=== PATIENT | male | born 1960 | race Caucasian/White ===

== ENCOUNTER → 2020-09-16 16:51 | Outpatient (CLI) | payer OTHER, SELFPAY ==
--- NOTE | ~2020-09-16 | XR_ITS ---
XR knee RT min 4V DATE: 09/16/2020 17:06 INDICATION: Right knee pain. No injury. TECHNIQUE: Standing AP and PA views. Astor and crosstable lateral views. COMPARISON: None FINDINGS: There is moderately prominent periarticular spurring at the patellofemoral joint. There is prominence of the tibial spines. There is minimal periarticular spurring at the medial and lateral co mpartments and moderate loss of medial compartment joint space height. There is chondrocalcinosis. No fracture or dislocation, joint effusion, periosteal reaction or bone destruction is evident. IMPRESSION: Osteoarthritis involving predominantly the medial and patellofemoral compartments Chondrocalcinosis Reviewed, dictated and finalized at location A. ETER IMPRESSION: Osteoarthritis involving predominantly the medial and patellofemora l compartments Chondrocalcinosis
== END ==
PROVIDERS: PCP Internal Medicine; Visit Provider Internal Medicine
DX: M17.11 Unilateral primary osteoarthritis, right knee (principal); M11.261 Other chondrocalcinosis, right knee
CPT/HCPCS: 73564

== ENCOUNTER → 2021-10-27 15:32 | Outpatient (CLI) | payer OTHER, SELFPAY ==
--- NOTE | ~2021-10-27 | XR_ITS ---
EXAMINATION: XR knee LT 3V DATE: 10/27/2021 15:53 INDICATION: Left knee pain. TECHNIQUE: 3 views of left knee were obtained. COMPARISON: None. FINDINGS: Bone alignment is normal. No fracture. There is mild tricompartmental osteoarthritis. There is a small knee joint effusion. There are loose bodies in a Carrillo's cyst. IMPRESSION: 1. Mild left knee osteoarthritis. 2. Small left knee joint effusion. 3. Loose bodies in a Carrillo's cyst. Reviewed, dictated and finalized at location A. ECT MANAGEMENT ADVISOR
== END ==
PROVIDERS: PCP Family Medicine; Visit Provider Family Medicine
DX: M17.12 Unilateral primary osteoarthritis, left knee (principal); M25.462 Effusion, left knee; M23.42 Loose body in knee, left knee; M71.22 Synovial cyst of popliteal space [Baker], left knee
CPT/HCPCS: 73562

== ENCOUNTER 2021-11-14 12:40 | Outpatient (CLI) | payer OTHER, SELFPAY ==
--- NOTE | ~2021-11-14 | MR_ITS ---
EXAMINATION: MR knee LT wo con DATE: 11/14/2021 13:25 INDICATION: Left knee pain TECHNIQUE: Magnetic resonance imaging (MRI) of the left knee was performed without intravenous contra st. Sequences included coronal PD-weighted FSE, coronal PD-weighted FS FSE, sagittal T2-weighted FSE , sagittal PD-weighted FS FSE and axial PD weighted fat saturated FSE. COMPARISON: None. FINDINGS: Medial compartment: Medial extrusion of the meniscal body. Complex tear of the posterior horn of the medial meniscus with longitudinal horizontal tear plane extending to the inferior articular surface near the free edge an d with a full-thickness radial tear plane near the posterior root. Partial-thickness chondral ulcerat ion along the anterior to central weightbearing medial femoral condyle. There is prominent subarticul ar edema along the medial rim of the anterior weightbearing medial femoral condyle. The low signal of the articular cortex appears thickened at this location although this could represent secondary reac tive change related to overlying chondromalacia, the edema appears disproportionate to the degree of chondromalacia and suspect fracture with compression of the immediately subarticular bone which could have either occurred as an acute impaction injury at the time of the meniscal tear or if the menisca l tear is more chronic this could represent a stress fracture resulting from altered stress distribut ion resulting from the meniscal tear. Mild tibial chondral surface regularity with mild partial-thick ness cartilage loss along the medial side of the medial tibial plateau. Lateral compartment: Focal increased intrasubstance signal at the body of the lateral meniscus which does not unambiguousl y contact the articular surface to meet requirement for meniscal tear in this more likely represents mucoid degeneration. Mild chondral surface irregularity along the central weightbearing lateral femor al condyle. Patellofemoral compartment: Deep chondral ulceration but without degenerative subchondral changes at the central aspect of the me dial patellar facet. Additional deep chondral ulceration with underlying cortical irregularity includ ing small central subchondral osteophytes and mild subarticular increased signal extending across the caudal two thirds of the medial and lateral trochlea and intervening trochlear groove. Ligaments and tendons: Anterior and posterior cruciate ligaments are normal. There is edema along the deep and superficial m argins of the otherwise normal-appearing medial collateral ligament which could be related to either low-grade sprain or unrelated reactive edema associated with the meniscal tear or suspected medial fe moral condylar injury. The fibular collateral ligament complex is normal. Minimal tendinopathy at the osseous attachment of the patellar and distal quadriceps tendons. The visualized medial and lateral hamstring tendons as well as the iliotibial band are normal. Fluid: Moderate left knee joint effusion. There are 14 mm and 6 mm and 3 mm loose osteochondral bodies withi n a small Carrillo's cyst. No intra-articular loose osteochondral bodies identified. Osseous/other: Bone alignment is normal. Normal marrow signal aside from the previous noted marrow edema at the ante rior weightbearing medial femoral condyle degenerative subarticular signal changes at the trochlea. N o pathologic marrow replacing process. IMPRESSION: 1. Complex medial meniscal tear including full-thickness radial component near the posterior root 2. Mild tricompartmental osteoarthritis with patellofemoral predominance with moderate to high-grade chondromalacia and with moderate grade chondromalacia in the medial and lateral compartments. 3. Prominent marrow edema along the anterior weightbearing medial femoral condyle which appears dispr oportionate to the degree of overlying chondromalacia
== END 2021-11-14 12:41 | disposition home or self-care (01) ==
LOC: ANHIMG 12:44
PROVIDERS: Visit Provider Nurse Practitioner Family
DX: M25.562 Pain in left knee (principal); S83.232A Complex tear of medial meniscus, current injury, left knee, initial encounter; M17.12 Unilateral primary osteoarthritis, left knee; M94.262 Chondromalacia, left knee; M79.89 Other specified soft tissue disorders; M25.462 Effusion, left knee; M71.22 Synovial cyst of popliteal space [Baker], left knee
CPT/HCPCS: 73721

== ENCOUNTER 2022-02-02 15:26 | Outpatient (CLI) | payer OTHER, SELFPAY ==
--- NOTE | 2022-02-02 15:33 | ECG_ITS ---
Measurements Intervals [place] Rate: 80 P: 68 HI: 195 QRS: 42 QRSD: 112 T: 9 QT: 358 QTc: 413 Interpretive Statements SINUS RHYTHM MODERATE INTRAVENTRICULAR CONDUCTION DELAY [110+ ms QRS DURATION] BORDERLINE ECG NO PREVIOUS ECG AVAILABLE FOR COMPARISON Electronically Signed On 02-02-2022 17:41:40 CDT by Manuel Barba M.D.
[2022-02-02 16:15] LABS: Anion Gap 8 mmol/L (8-16); Blood Urea Nitrogen 25 mg/dL (9-20); Carbon Dioxide 26 mmol/L (22-30); Chloride 104 mmol/L (98-107); Estimated Glomerular Filt Rate > 60; Glucose 86 mg/dL (65-110); Potassium 3.6 mmol/L (3.4-5.0); Sodium 138 mmol/L (137-145)
== END 2022-02-02 15:27 | disposition home or self-care (01) ==
LOC: ANHSURGERY 15:32
PROVIDERS: Anesthesiology; PCP Family Medicine; Visit Provider Orthopaedic Surgery
DX: Z01.818 Encounter for other preprocedural examination (principal); I10 Essential (primary) hypertension; Z51.81 Encounter for therapeutic drug level monitoring; Z79.899 Other long term (current) drug therapy; I45.9 Conduction disorder, unspecified
CPT/HCPCS: 36415; 80048; 93005

== ENCOUNTER 2022-02-05 01:16 | Day surgery (SDC) | payer OTHER, SELFPAY ==
[2022-01-27 14:33] VITALS: BMI 29.9
--- NOTE | 2022-01-27 14:35 | PC.NURSE ---
Report to the Outpatient Waiting Room, entrance under the green pavilion located off [facility], at time __0830_ on date _02-05-2022_. OR Time: _1030_. - You and your visitor will be asked a series of questions to screen for COVID 19 for your protection. - A mask is required within the hospital. Preoperative COVID Testing Requirements: No COVID Test needed if: (proof is required; if not received patient will have Rapid Test prior to entry) - Patient has received COVID Vaccine at least 14 days prior to procedure date or - Patient has positive COVID test result within last 90 days of surgery date. COVID Test needed if above criteria is not met If not COVID vaccinated a COVID test must be conducted within 72 hours of surgery and patient is asked to isolate self from time of testing until procedure. You will go to the [facility] for your COVID testing. The [facility] is located at the corner of [address] [facility]. You will only be called if COVID results are positive and your surgeon may reschedule your elective surgery date. Patients may have clear liquids (water, carbonated beverages, clear teas, apple juice) until 3 hours prior to surgery with a maximum of 20 ounces. - No food from midnight until time of surgery - Infants may have breast milk until 4 hours before surgery, formula 6 hours prior to surgery. - Children will be allowed to drink immediately following surgery. If applicable, please bring a bottle or sippy cup to assist with drinking. Juice, water, soda, and popsicles are readily available. For infants on formula, please bring formula the day of surgery. Pacifiers are allowed. Take the following medications with a SIP of water the morning of surgery: No medicines day of surgery. Medications to discontinue per physician Multivitamin Date to take last [id number] Please no make-up, nail citizen of the [place], hairspray, perfume, deodorant, or body powder the day of surgery. No jewelry (including any body piercings) or valuables the day of surgery, leave them at home. Please take a shower or bath the night before, or the morning of, surgery with an antibacterial soap. Wear comfortable, loose fitting clothing. Children are encouraged to wear pajamas. - Jewelry must be removed prior to entering the operating room. Rings and piercings that are not removed may be cut off. - The hospital will not accept responsibility for valuables. - Please leave all valuables, including medications, at home the day of surgery. If you are going home after surgery, a licensed gravel truck driver must drive you home. - NO public transportation without another adult. - We recommend that an adult stay with you for 24 hours following discharge. - We also recommend that you do not drive, make important decision, drink alcoholic beverages, or take any drugs that were not prescribed by your health care provider for at least 24 hours after your discharge time. For Pediatric surgeries, we recommend two adults accompany the child home (only one inside the building at this time). One visitor will be allowed to accompany the patient into the hospital. Patients visitor will be instructed to remain with patient at all times or leave the building. We will allow the visitor to come back to the postoperative area when patient is ready. Follow any additional instructions given to you from your surgeon. Telephone instructions given to Patient and asked if any additional questions and then verbalized understanding. Patient advised to call surgeon office or pre surgery nurse liaison [phone] if any additional questions.
--- NOTE | 2022-02-04 13:37 | P.PNAN_ITS ---
Anes - Initial Pre Proc Eval Procedure: Operation Date: 02/05/22 10:30 Proposed Procedures p Left Knee Arthroscopy - Sang Wright MD Date/Time: 02/04/22 13:37 Surgeon: Sang Wright MD Pre Op Diagnosis: Lt Medial Meniscus Tear Patient Data Age: 61 Gender: M Height: 1.83 m Weight: 100 kg Allergies Allergy/AdvReac Type Severity Reaction Status Date / Time No Known Allergies Allergy Mild Verified 01/27/22 14:15 Home Medications Medication Instructions Recorded Confirmed Type losartan 100 1 tablet PO DAILY #90 tablet 12/15/21 01/27/22 Rx mg-hydrochlorothiazide 25 mg tablet tadalafil 5 mg tablet 5 mg PO DAILY #90 tablet 12/15/21 01/27/22 Rx multivitamin 1 tablet PO DAILY 01/27/22 01/27/22 History Results Review: All pre-operative results and documents have been reviewed as part of the pre-operative evaluation. [facility] Past Medical History Medical History Benign prostatic hyperplasia BPH w urinary obs/LUTS Cerumen impaction Chronic left-sided low back pain without sciatica Hypertension Insomnia, unspecified Knee pain, left Medial meniscus tear Other abnormal glucose Other obstructive and reflux uropathy Sleep disorder Tinea cruris Tobacco use disorder Weight gain Family History Family History Father Family history of malignant neoplasm Patient's father is Sibling Family history of pancreatic cancer Mother Family history of malignant neoplasm of ovary Social History Social History Smoking status: Never smoker Tobacco type: smokeless tobacco Second hand tobacco smoke exposure: No Alcohol intake: current Drinks per week: 3 Spiritual care concerns: No Anes - Eval Final PreProcedure Day of Procedure 02/04/22 13:37 Patient weight: overweight Heart: regular rate and rhythm Lungs: clear to auscultation and normal air movement Airway: Mallampati scale class II Neurological: alert and oriented Last oral intake: >/= 8 hours ASA classification: II Emergent: no Anesthetic plan: proceed Anesthesia type and monitoring: general LMA Results Review: All pre-operative results and documents have been reviewed as part of the pre-operative evaluation. Informed Consent: The patient's anesthetic plan and its attendant risks and benefits were discussed with the patient/family/POA. Questions were solicited and answers provided to the satisfaction of the patient/family/POA.
--- NOTE | 2022-02-04 16:48 | PM.IMHP ---
H&P: HPI History of Present Illness Date/Time: 02/04/22 16:48 61 year old male presents today with Lt knee pain, pt. states that the pain onset was on 10/12/2021 -8w post injury after carrying heavy furniture down the stairs and felt a pop followed by pain. Pt. had an Xray performed on 10/27/2021 and it revealed mild OA with small joint effusion, and a blanco's cyst. He states the pain is at the peak when he is going up and down the stairs. He was prescribed [place] from his PCP which did help with the pain. He denies surgery, injections or PT for the Lt knee. Pt. had an MRI performed and it revealed a medial meniscus tear. Here today to discuss the next POC. Involved knee: left Onset: sudden Location of pain: medial Pain scale (0-10): 8 Character: stabbing, throbbing and other (sharp ) Timing of pain: intermittent Exacerbated by: weight bearing, kneeling, squatting, stairs and prolonged activity Relieved by: elevation, ice, rest, NSAIDs and other (pain medication ) Associated symptoms: Reports popping, instability and grating History of occupational/recreational activity with repetitive motion: No History of prior knee injury: Yes (carrying heavy furniture felt a pop followed by pain ) Date: 10/12/21 Prior treatment: NSAIDs and rest Chief Complaint: left knee pain Review of Systems Review of Systems: All systems reviewed & are unremarkable except as noted in HPI and below Cardiovascular: Cardiovascular: Reports no additional cardiovascular complaints Respiratory: Respiratory: Reports no additional respiratory complaints Gastrointestinal: Gastrointestinal: Reports no additional gastrointestinal complaints Genitourinary: Genitourinary: Reports no additional male genitourinary complaints [facility] Past Medical History Medical History Benign prostatic hyperplasia BPH w urinary obs/LUTS Cerumen impaction Chronic left-sided low back pain without sciatica Hypertension Insomnia, unspecified Knee pain, left Medial meniscus tear Other abnormal glucose Other obstructive and reflux uropathy Sleep disorder Tinea cruris Tobacco use disorder Weight gain Family History Family History Father Family history of malignant neoplasm Patient's father is Sibling Family history of pancreatic cancer Mother Family history of malignant neoplasm of ovary Social History Social History Smoking status: Never smoker Tobacco type: smokeless tobacco Second hand tobacco smoke exposure: No Alcohol intake: current Drinks per week: 3 Spiritual care concerns: No Meds Home Medications and Allergies Home Medications Medication Instructions Recorded Confirmed Type losartan 100 1 tablet PO DAILY #90 tablet 12/15/21 01/27/22 Rx mg-hydrochlorothiazide 25 mg tablet tadalafil 5 mg tablet 5 mg PO DAILY #90 tablet 12/15/21 01/27/22 Rx multivitamin 1 tablet PO DAILY 01/27/22 01/27/22 History Allergies Allergy/AdvReac Type Severity Reaction Status Date / Time No Known Allergies Allergy Mild Verified 01/27/22 14:15 Exam Const: General: cooperative Nutritional Appearance: well nourished Orientation/consciousness: oriented to person, oriented to place and oriented to time HENMT: Head: normal to inspection Ears: hearing grossly normal bilaterally General nose exam: Normal external nose present Face and sinus: normal facial exam Mouth: Yes Normal oral and palatal mucosa present Eyes: General: appearance normal, both eyes and all related structures Visual Jacobo: normal visual jacobo by confrontation Neck: Neck: normal visual inspection Chest: Chest palpation & inspection: normal inspection of the chest Resp: Effort & Inspection: normal respiratory effort and able to speak in complete sentences Cardio: Jugular venous distension: no JVD Palpation:
[2022-02-05] VITALS (7 sets, daily range): BP systolic 117–155; BP diastolic 66–99; PULSE 52–83; RESP 12–16; TEMP 36.4–36.6; O2SAT 98–100
--- NOTE | 2022-02-05 07:06 | WPDHPUPDATE1 ---
History and Physical Update Update Date/Time: 02/05/22 07:06 History and Physical has been reviewed, including an updated exam of the patient. There are NO changes in the patient's condition. Risks, benefits, and alternatives have been discussed and questions answered. Patient agrees to proceed with procedure.
[2022-02-05] MEDS: ACETAMINOPHEN 500 MG TABLET 1000 MG PO (08:46)
[2022-02-05] MEDS: CELECOXIB 200 MG CAPSULE PO (08:46)
[2022-02-05] MEDS: LACTATED RINGERS 1,000 ML 30 ML IV CONT (09:10)
--- NOTE | 2022-02-05 09:38 | WPDANESEPPF ---
Anes - Initial Pre Proc Eval Procedure: Operation Date: 02/05/22 10:30 Proposed Procedures p Left Knee Arthroscopy - Sang Wright MD Date/Time: 02/05/22 09:38 Surgeon: Sang Wright MD Pre Op Diagnosis: Lt Medial Meniscus Tear Patient Data Age: 61 Gender: M Height: 1.83 m Weight: 104.1 kg Last Vital Signs Temp 36.6 C 02/05/22 08:54 Pulse 52 L 02/05/22 08:54 Resp 16 02/05/22 08:54 BP 119/66 02/05/22 08:54 Pulse Ox 100 02/05/22 08:54 Allergies Allergy/AdvReac Type Severity Reaction Status Date / Time No Known Allergies Allergy Mild Verified 02/05/22 08:37 Home Medications Medication Instructions Recorded Confirmed Type losartan 100 1 tablet PO DAILY #90 tablet 12/15/21 02/05/22 Rx mg-hydrochlorothiazide 25 mg tablet tadalafil 5 mg tablet 5 mg PO DAILY #90 tablet 12/15/21 02/05/22 Rx multivitamin 1 tablet PO DAILY 01/27/22 02/05/22 History Patient hx anesthesia problems: none Family hx anesthesia problems: none Results Review: All pre-operative results and documents have been reviewed as part of the pre-operative evaluation. [facility], [facility] Past Medical History Medical History Benign prostatic hyperplasia BPH w urinary obs/LUTS Cerumen impaction Chronic left-sided low back pain without sciatica Hypertension Insomnia, unspecified Knee pain, left Medial meniscus tear Other abnormal glucose Other obstructive and reflux uropathy Sleep disorder Tinea cruris Tobacco use disorder Weight gain Family History Family History Father Family history of malignant neoplasm Patient's father is Sibling Family history of pancreatic cancer Mother Family history of malignant neoplasm of ovary Social History Social History Tobacco type: smokeless tobacco Second hand tobacco smoke exposure: No Alcohol intake: current Drinks per week: 6 Living arrangements: with family Spiritual care concerns: No Anes - Eval Final PreProcedure Day of Procedure 02/05/22 09:38 Patient weight: overweight Heart: regular rate and rhythm Lungs: clear to auscultation Airway: Mallampati scale class II Neurological: alert and oriented Last oral intake: >/= 8 hours ASA classification: II Emergent: no Anesthetic plan: proceed Anesthesia type and monitoring: general LMA and standard monitoring Results Review: All pre-operative results and documents have been reviewed as part of the pre-operative evaluation. Informed Consent: The patient's anesthetic plan and its attendant risks and benefits were discussed with the patient/family/POA. Questions were solicited and answers provided to the satisfaction of the patient/family/POA.
[2022-02-05] MEDS: ceFAZolin 2 GM/D5W 50 ML 2 GM/50 ML BAG IVPB (09:42)
[2022-02-05] MEDS: BUPIVACAINE HCL 0.5% PF 30 ML VIAL INFILTRATE (10:18)
[2022-02-05] MEDS: fentaNYL CITRATE INJ (*CRX) 100 MCG/2 ML VIAL 25 MCG IV PUSH ×2 (11:25→11:30)
--- NOTE | 2022-02-05 11:31 | W.PM.PROC2 ---
Procedure Note - Detailed Date of Procedure 02/05/22 Pre-op Diagnosis Lt Medial Meniscus Tear Post-op Diagnosis Same Procedure Performed LEFT KNEE SCOPE Surgeon Sang Wright MD Anesthesia General Description of Procedure PATIENT WAS TAKEN TO THE OR. LEFT LEG WAS PREPPED AND DRAPED STERILE. TROCARS WERE PLACED IN THE USUAL FASHION. CAMERA WAS INTRODUCED. THERE WAS CHONDROMALACIA TO THE PATELLA FEMORAL JOINT. THERE WAS A LOT OF SYNOVITIS IN ALL COMPARTMENTS. THE MEDIAL COMPARTMENT SHOWED CHONDROMALACIA TO THE MEDIAL FEMORAL CONDYLE. A SHAVER WAS USED TO PREFORM A CHONDROPLASTY. THERE WAS A COMPLEX MEDIAL MENISCUS TEAR. THE TEAR WAS RESECTED WITH A BITER AND A SHAVER DOWN TO A SMOOTH BASE. ABOUT 30% OF THE MENISCUS WAS REMOVED. THE ACL WAS INTACT. THE LATERAL MENISCUS WAS TORN AND WAS RESECTED AT THE MID SUBSTANCE. THE LATERAL COMPARTMENT HAD GRADE 2 CHONDROMALACIA. CHONDROPLASTY WAS PREFORMED. A SYNOVECTOMY WAS PREFORMED WELL. THE PATELLO FEMORAL JOINT UNDERWENT CHONDROPLASTY. THERE WAS GRADE 3 AND 4 CHONDROMALACIA IN PART OF THE TROCHLEA AND PART OF THE PATELLA. SYNOVECTOMY WAS PREFORMED IN THE SUPERIOR MEDIAL COMPARTMENT. THE WOUNDS WERE APPROXIMATED WITH 4.0 NYLON. STERILE DRESSING WAS APPLIED. PATIENT WAS EXTUBATED. Estimated Blood Loss -5.0 Pathology None sent Complications No immediate complications Condition Stable Disposition PACU
== END 2022-02-05 13:08 | disposition home or self-care (01) ==
PROVIDERS: PCP Family Medicine; Visit Provider Orthopaedic Surgery
PROC: (CPT 29870; principal; 2022-02-05 10:30)
DX: S83.232A Complex tear of medial meniscus, current injury, left knee, initial encounter (principal); S83.242A Other tear of medial meniscus, current injury, left knee, initial encounter; X50.0XXA Overexertion from strenuous movement or load, initial encounter; M25.562 Pain in left knee; M17.12 Unilateral primary osteoarthritis, left knee; M25.462 Effusion, left knee; M71.22 Synovial cyst of popliteal space [Baker], left knee; M65.862 Other synovitis and tenosynovitis, left lower leg; M94.262 Chondromalacia, left knee; N40.1 Benign prostatic hyperplasia with lower urinary tract symptoms; I10 Essential (primary) hypertension; F17.220 Nicotine dependence, chewing tobacco, uncomplicated; G47.00 Insomnia, unspecified
CPT/HCPCS: 29880; A9270; J0690; J2250; J2270; J2704; J3010; J7120

== ENCOUNTER 2022-05-15 10:51 | Emergency (ER) | payer OTHER, SELFPAY ==
[2022-05-15 11:02] VITALS: BP 141/77; PULSE 72; RESP 16; TEMP 36.2; O2SAT 100
--- NOTE | 2022-05-15 11:30 | ED.WOUNDLAC ---
HPI - Wound/Laceration General Chief Complaint: Wound/Laceration Stated Complaint: eyelid injury Time Seen by Provider: 05/15/22 11:21 Source: patient and RN notes reviewed Mode of arrival: ambulatory Limitations: no limitations History of Present Illness HPI narrative: 62-year-old male presents with concern for laceration above his left eye. Reports just prior to arrival he was working with a watch parts grinder when the blade malfunctioned and a piece flew up and hit him above the eye. He reports initially he felt very slight blurry vision, reports that has resolved and he has normal vision. Reports he was concerned because he could not get the wound to stop bleeding. He denies any head injury, syncope, vomiting. Related Data Home Medications Medication Instructions Recorded Confirmed multivitamin 1 tablet PO DAILY 01/27/22 05/15/22 Allergies Allergy/AdvReac Type Severity Reaction Status Date / Time No Known Allergies Allergy Mild Verified 05/15/22 11:27 Review of Systems Review of Systems: CONSTITUTIONAL: Denies malaise, chills, sweats, or fever. 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 Right knee pain Sleep disorder Tinea cruris Tobacco use disorder Weight gain Family History Family History Father Family history of malignant neoplasm Patient's father is Sibling Family history of pancreatic cancer Mother Family history of malignant neoplasm of ovary Social History Social History Smoking status: Never smoker Second hand tobacco smoke exposure: No Alcohol intake: current Drinks per week: 6 Substance use: never Gender identity (if verbalized by the patient): Male Spiritual care concerns: No Comments At time of signature, agree with nursing past medical, surgical, social and family history. There is no relevant family history pertinent to the presenting complaint Exam Narrative: GENERAL: Well-appearing, well-nourished, and in no acute distress. HEAD: Normocephalic, atraumatic. EYES: PERRLA, conjunctivae clear, and EOMI. ENT: Mucous membranes moist. NECK: Supple. No lymphadenopathy CHEST: Clear to auscultation. No respiratory distress. HEART: Regular rate and rhythm. SKIN: Warm, dry. 2.5 cm linear laceration into subcutaneous tissue noted below the left eyebrow, not involving the eyebrow or the eyelid NEURO: Alert and oriented x3. PSYCH: Normal mood and affect Course Course Emergency Course: Patient is aware of diagnosis, understands and agrees to treatment plan. Anticipatory guidance given. Patient agrees to follow-up as directed and is aware of reasons to seek care at the emergency department. Portions of this record may have been created with voice recognition software Level of Care: Express Care Visit Vital Signs Vital signs: Vital Signs Temperature 97.1 F L 05/15/22 11:02 Pulse Rate 72 05/15/22 11:02 Respiratory Rate 16 05/15/22 11:02 Blood Pressure 141/77 H 05/15/22 11:02 Pulse Oximetry 100 05/15/22 11:02 Temperature 97.1 F L 05/15/22 11:02 Pulse Rate 72 05/15/22 11:02 Respiratory Rate 16 05/15/22 11:02 Blood Pressure 141/77 H 05/15/22 11:02 Pulse Oximetry 100 05/15/22 11:02 Reviewed. Procedures Laceration Laceration 1: Date:
== END 2022-05-15 11:46 | disposition home or self-care (01) ==
PROVIDERS: Emergency Provider Nurse Practitioner; PCP Internal Medicine
DX: S01.81XA Laceration without foreign body of other part of head, initial encounter (principal); W29.8XXA Contact with other powered hand tools and household machinery, initial encounter; N40.0 Benign prostatic hyperplasia without lower urinary tract symptoms; M17.11 Unilateral primary osteoarthritis, right knee
CPT/HCPCS: 12011; 99212; G0463

== ENCOUNTER → 2022-12-07 12:50 | Outpatient (CLI) | payer OTHER, SELFPAY ==
--- NOTE | ~2022-12-07 | MR_ITS ---
EXAMINATION: MR knee RT wo con DATE: 12/07/2022 13:26 INDICATION: Right knee pain TECHNIQUE: Magnetic resonance imaging (MRI) of the right knee was performed without intravenous contr ast. Sequences included coronal PD-weighted FSE, coronal PD-weighted FS FSE, sagittal T2-weighted FS E, sagittal PD-weighted FS FSE and axial PD weighted fat saturated FSE. COMPARISON: None. FINDINGS: Medial compartment: Complex tear of the medial meniscus with radial tear plane at the lateral aspect of the posterior hor n and with longitudinal horizontal tear plane extending to the more medial posterior horn and the med ially extruded meniscal body. Extensive deep chondral ulceration along the anterior to central weight bearing medial femoral condyle with mild scattered underlying subarticular edema-like marrow signal c hange and along the anteromedial aspect medial tibial plateau with more prominent underlying edema-li ke signal change. Lateral compartment: Longitudinal horizontal tear extending to the inferior articular surface at the posterior body and la teral aspect of the posterior horn of the lateral meniscus. Deep chondral fissuring without degenerat princess subchondral changes at the junction of the anterior and central weightbearing lateral femoral con dyle and at the posterior aspect of the lateral tibial plateau. Patellofemoral compartment: Partial-thickness chondral chondral ulceration and deep fissuring at the patellar apical ridge. Less severe partial thickness chondral fissuring involving less than 50% the cartilage thickness at the me dial side of the lateral patellar facet. Deep chondral fissuring without degenerative subchondral mike nges at the trochlear groove. Ligaments and tendons: Anterior and posterior cruciate ligaments are normal. The medial collateral ligament and fibular chaitanya ateral ligament complex are normal. The extensor mechanism is normal. The visualized medial and later al hamstring tendons as well as the iliotibial band are normal. Fluid: Moderate-sized knee joint effusion at the suprapatellar pouch. There is a multiloculated small to mod erate-sized Carrillo's cyst. No loose osteochondral bodies identified. Osseous/other: Bone alignment is normal. No fracture or pathologic marrow replacing process. Subcutaneous varicositi es on the lateral aspect of the knee. IMPRESSION: 1. Medial and lateral meniscal tears. 2. Tricompartmental osteoarthritis, moderate severity with extensive moderate and high-grade chondrom alacia in the medial compartment and mild with moderate grade chondral malacia the patellar and later al compartments. 3. Moderate-sized knee joint effusion and small to moderate-sized Carrillo's cyst. Reviewed, dictated and finalized at location A. BUILDER IMPRESSION: 1. Medial and lateral meniscal tears. 2. Tricompartmental osteoarthritis, moderate severity with extensive moderate a nd high-grade chondromalacia in the medial compartment and mild with moderate g rade chondral malacia the patellar and lateral compartments. 3. Moderate-sized knee joint effusion and small to moderate-sized Carrillo's cyst.
== END ==
PROVIDERS: PCP Orthopaedic Surgery; Visit Provider Orthopaedic Surgery
DX: S83.281A Other tear of lateral meniscus, current injury, right knee, initial encounter (principal); S83.241A Other tear of medial meniscus, current injury, right knee, initial encounter; M17.11 Unilateral primary osteoarthritis, right knee; M25.461 Effusion, right knee; M71.21 Synovial cyst of popliteal space [Baker], right knee
CPT/HCPCS: 73721

== ENCOUNTER 2023-01-06 12:47 | Outpatient (CLI) | payer OTHER, SELFPAY ==
--- NOTE | 2023-01-06 14:41 | ECG_ITS ---
Measurements Intervals [place] Rate: 86 P: 76 SC: 193 QRS: 50 QRSD: 114 T: 26 QT: 344 QTc: 412 Interpretive Statements SINUS RHYTHM BORDERLINE ST-T WAVE ABNORMALITY- ANTEROLAT/INF LEADS BASELINE ARTIFACT- I, II, III, AVR, AVL, AVF, V1-V2 BORDERLINE ECG COMPARED TO ECG 02/02/2022 15:43:37 NO SIGNIFICANT CHANGES Electronically Signed On 01-06-2023 15:48:03 BROOMMAKER by Aniceto Howell D.O.
[2023-01-06 15:39] LABS: Anion Gap 8 mmol/L (8-16); Blood Urea Nitrogen 19 mg/dL (9-20); Calcium 9.2 mg/dL (8.4-10.2); Carbon Dioxide 28 mmol/L (22-30); Chloride 101 mmol/L (98-107); Estimated Glomerular Filt Rate > 60; Glucose 103 mg/dL (65-110); Potassium 3.4 mmol/L (3.4-5.0); Sodium 137 mmol/L (137-145)
== END 2023-01-06 12:48 | disposition home or self-care (01) ==
LOC: ANHSURGERY 14:27
PROVIDERS: Anesthesiology; PCP Orthopaedic Surgery; Visit Provider Orthopaedic Surgery
DX: Z01.812 Encounter for preprocedural laboratory examination (principal); Z01.810 Encounter for preprocedural cardiovascular examination; Z79.899 Other long term (current) drug therapy; I10 Essential (primary) hypertension
CPT/HCPCS: 36415; 80048; 93005

== ENCOUNTER 2023-01-12 00:41 | Day surgery (SDC) | payer OTHER, SELFPAY ==
[2023-01-03 13:59] VITALS: BMI 29.9
--- NOTE | 2023-01-03 14:00 | PC.NURSE ---
Report to the Outpatient Waiting Room, entrance under the green pavilion located off [facility], at time _1030_ on date _[id number]_. Planned Procedure Time: _1230_. Time changes happen often and if your time is changed the preop area will call you the afternoon before. - You and your visitor will be asked to self-screen and do not enter if you have any COVID symptoms. - Only one visitor is requested with a max of two and NO children visitors are allowed at this time. - The patient visitor may be requested to leave or wait in car when not with patient due to distancing restrictions. - A mask is optional within the hospital at this time. Patients may have clear liquids (water, carbonated beverages, clear teas, apple juice) until 3 hours prior to surgery with a maximum of 20 ounces. - No food from midnight until time of surgery Take the following medications with a SIP of water the morning of surgery: ___None DO NOT STOP ANY OF YOUR OTHER PRESCRIPTION MEDICATIONS PRIOR TO SURGERY ?EXCEPT THE FOLLOWING Medications to discontinue per physician ____Multivitamin Date to take last mixe_[id number] Please no make-up, nail greenlandic, hairspray, perfume, deodorant, or body powder the day of surgery. No jewelry (including any body piercings) or valuables the day of surgery, leave them at home. Please take a shower or bath the night before, or the morning of, surgery with an antibacterial soap. Wear comfortable, loose fitting clothing. - Jewelry must be removed prior to entering the operating room. Rings and piercings that are not removed may be cut off. - The hospital will not accept responsibility for valuables. - Please leave all valuables, including medications, at home the day of surgery. If you are going home after surgery, a licensed refrigerated company driver must drive you home. - NO public transportation without another adult if you receive anesthesia. - We recommend that an adult stay with you for 24 hours following discharge. - We also recommend that you do not drive, make important decision, drink alcoholic beverages, or take any drugs that were not prescribed by your health care provider for at least 24 hours after your discharge time. Follow any additional instructions given to you from your surgeon. If you or anyone in your household have experienced Covid symptoms in the past week, please notify your surgeon or the nurse liaison at the phone number below for possible testing. Telephone instructions given to __Patient___and asked if any additional questions and then verbalized understanding. Patient advised to call surgeon office or pre surgery nurse liaison [phone] if any additional questions.
[2023-01-12] VITALS (7 sets, daily range): BP systolic 147–171; BP diastolic 93–109; PULSE 60–86; RESP 10–16; TEMP 36.3–36.8; O2SAT 99–100
--- NOTE | 2023-01-12 07:17 | WPDHPUPDATE1 ---
History and Physical Update Update Date/Time: 01/12/23 07:17 History and Physical has been reviewed, including an updated exam of the patient. There are NO changes in the patient's condition. Risks, benefits, and alternatives have been discussed and questions answered. Patient agrees to proceed with procedure.
[2023-01-12] MEDS: LACTATED RINGERS 1,000 ML 30 ML IV CONT ×2 (11:02→13:22)
--- NOTE | 2023-01-12 11:07 | WPDANESEPPF ---
Anes - Initial Pre Proc Eval Procedure: Operation Date: 01/12/23 12:30 Proposed Procedures p Right Knee Arthroscopy - Sang Wright MD Date/Time: 01/12/23 11:07 Surgeon: Sang Wright MD Pre Op Diagnosis: right medial and lateral meniscus tears Patient Data Age: 62 Gender: M Height: 1.83 m Weight: 105 kg Last Vital Signs Temp 36.3 C L 01/12/23 10:55 Pulse 72 01/12/23 10:55 Resp 16 01/12/23 10:55 BP 152/93 H 01/12/23 10:55 Pulse Ox 100 01/12/23 10:55 O2 Del Method Room Air 01/12/23 10:55 Allergies Allergy/AdvReac Type Severity Reaction Status Date / Time No Known Allergies Allergy Mild Verified 01/12/23 10:47 Home Medications Medication Instructions Recorded Confirmed Type multivitamin 1 tablet PO DAILY 01/27/22 01/03/23 History losartan 100 1 tablet PO DAILY #90 tabs 07/29/22 01/03/23 Rx mg-hydrochlorothiazide 25 mg tablet tadalafil 5 mg tablet (Cialis) 5 mg PO DAILY #90 tabs 07/29/22 01/03/23 Rx Patient hx anesthesia problems: none Family hx anesthesia problems: none Results Review: All pre-operative results and documents have been reviewed as part of the pre-operative evaluation. [facility] Past Medical History Medical History Benign prostatic hyperplasia BPH w urinary obs/LUTS Cerumen impaction Chronic left-sided low back pain without sciatica Degenerative joint disease of knee Hypertension Insomnia, unspecified Knee pain, left Medial meniscus tear Other abnormal glucose Other obstructive and reflux uropathy Right knee DJD Right knee pain Sleep disorder Tinea cruris Tobacco use disorder Weight gain Family History Family History Father Family history of malignant neoplasm Patient's father is Sibling Family history of pancreatic cancer Mother Family history of malignant neoplasm of ovary Social History Social History Smoking status: Never smoker Second hand tobacco smoke exposure: No Alcohol intake: current Drinks per week: 7 Substance use: never Living arrangements: with family Gender identity (if verbalized by the patient): Male Spiritual care concerns: No Anes - Eval Final PreProcedure Day of Procedure 01/12/23 11:07 Patient weight: overweight Heart: regular rate and rhythm Lungs: clear to auscultation Airway: Mallampati scale class II Neurological: alert and oriented Last oral intake: >/= 8 hours ASA classification: II Emergent: no Anesthetic plan: proceed Anesthesia type and monitoring: general LMA and standard monitoring Results Review: All pre-operative results and documents have been reviewed as part of the pre-operative evaluation. Informed Consent: The patient's anesthetic plan and its attendant risks and benefits were discussed with the patient/family/POA. Questions were solicited and answers provided to the satisfaction of the patient/family/POA.
[2023-01-12] MEDS: ACETAMINOPHEN 500 MG TABLET 1000 MG PO (11:16)
[2023-01-12] MEDS: CELECOXIB 200 MG CAPSULE PO (11:16)
[2023-01-12] MEDS: ceFAZolin 2 GM/D5W 50 ML 2 GM/50 ML BAG IVPB (12:12)
[2023-01-12] MEDS: BUPivacaine HCL 0.5% PF 30 ML VIAL INFILTRATE (12:48)
[2023-01-12] MEDS: fentaNYL CITRATE INJ (*CRX) 100 MCG/2 ML VIAL 25 MCG IV PUSH ×3 (13:47→14:02)
--- NOTE | 2023-01-12 13:56 | W.PM.PROC2 ---
Procedure Note - Detailed Date of Procedure 01/12/23 Pre-op Diagnosis right medial and lateral meniscus tears Post-op Diagnosis Same Procedure Performed RIGHT KNEE SCOPE Surgeon Sang Wright MD Anesthesia General Description of Procedure PATIENT WAS TAKEN TO THE OR. RIGHT LEG WAS PREPPED AND DRAPED STERILE. TROCARS WERE PLACED IN THE USUAL FASHION. CAMERA WAS INTRODUCED. THERE WAS CHONDROMALACIA TO THE PATELLA FEMORAL JOINT. THERE WAS A LOT OF SYNOVITIS IN ALL COMPARTMENTS. THERE WERE MULTIPLE BANDS OF PLICAE EXTENDING THROUGHOUT THE KNEE JOINT. THE MEDIAL COMPARTMENT SHOWED CHONDROMALACIA TO THE MEDIAL FEMORAL CONDYLE. THERE WAS ALSO A FULL THICKNESS DEFECT TO THE MEDIAL FEMORAL CONDYLE AND TIBIAL PLATEAU MEASURING ABOUT 2X1 CM. A SHAVER WAS USED TO PREFORM A CHONDROPLASTY. THERE WAS A COMPLEX MEDIAL MENISCUS TEAR. THE TEAR WAS RESECTED WITH A BITER AND A SHAVER DOWN TO A SMOOTH BASE. THE ACL WAS INTACT. THE LATERAL MENISCUS WAS TORN AT THE ANTERIOR HORN. THE TEAR WAS RESECTED. THE LAT COMPARTMENT HAD GRADE 2 CHONDROMALACIA AT THE LATERAL FEMORAL CONDYLE. THE DEFECT WAS LARGE BUT SHALLOW AND DID NOT EXTEND TO THE SUBCONDYLAR BONE. CHONDROPLASTY WAS PREFORMED. A SYNOVECTOMY WAS PREFORMED WELL. THE PATELLO FEMORAL JOINT UNDERWENT CHONDROPLASTY. THERE WAS GRADE 3 CHONDROMALACIA IN MOST OF THE TROCHLEA AND PART OF THE PATELLA. SYNOVECTOMY WAS PREFORMED IN THE SUPERIOR MEDIAL COMPARTMENT. LARGE AND MULTIPLE PLICA BANDS WERE REMOVED. THE INSTRUMENTS WERE REMOVED AFTER SEVERAL MINUTES OF IRRIGATION OF THE KNEE JOINT. THE WOUNDS WERE APPROXIMATED WITH 4.0 NYLON. STERILE DRESSING WAS APPLIED. PATIENT WAS EXTUBATED. Estimated Blood Loss -5.0 Complications No immediate complications Condition Stable Disposition PACU
[2023-01-12] MEDS: oxyCODONE HCL (*CRX) 5 MG TAB IR PO (14:27)
== END 2023-01-12 14:53 | disposition home or self-care (01) ==
PROVIDERS: PCP Family Medicine; Visit Provider Orthopaedic Surgery
PROC: (CPT 29870; principal; 2023-01-12 12:30)
DX: M23.331 Other meniscus derangements, other medial meniscus, right knee (principal); M23.341 Other meniscus derangements, anterior horn of lateral meniscus, right knee; M22.41 Chondromalacia patellae, right knee; M65.861 Other synovitis and tenosynovitis, right lower leg; M67.51 Plica syndrome, right knee; I10 Essential (primary) hypertension
CPT/HCPCS: 29880; 36415; 80048; 93005; A9270; J0690; J1100; J2250; J2405; J2704; J3010; J7120

== ENCOUNTER 2023-08-05 15:20 | Outpatient (CLI) | payer OTHER, SELFPAY ==
--- NOTE | ~2023-08-05 | CT_ITS ---
EXAMINATION: CT abdomen pelvis w con INDICATION: Unspecified abdominal pain TECHNIQUE: Computed tomographic images of the abdomen and pelvis were obtained after the administrati on of 100 cc of Omnipaque 350 intravenous contrast. The dose-length product (DLP) was 967.28 mGy-cm. Automated exposure control and iterative reconstruction technique were employed. COMPARISON: None available FINDINGS: Minimal dependent atelectasis is present in the lung bases. The heart size is normal. The l iver, spleen, pancreas, gallbladder, and adrenal glands are normal. The kidneys are unremarkable. No pathologically enlarged abdominal or pelvic lymph nodes are identified. No free intraperitoneal gas o r evidence of bowel obstruction. There is a circumaortic left renal vein. A moderate volume of coloni c stool is present. The appendix is normal. There is mild lumbar spondylosis. IMPRESSION: 1. No CT correlate for the patient's symptoms. Reviewed, dictated and finalized at location F.
[2023-08-05 15:36] LABS: Estimated Glomerular Filt Rate > 60
== END 2023-08-05 15:21 ==
PROVIDERS: PCP Family Medicine; Visit Provider Family Medicine
DX: R10.9 Unspecified abdominal pain (principal)
CPT/HCPCS: 74177; Q9967

== ENCOUNTER 2023-08-09 14:28 | Outpatient (CLI) | payer OTHER, SELFPAY ==
[2023-08-09 18:26] LABS: Hematocrit 39.9 % (42.0-52.0); Hemoglobin 13.2 g/dL (14.0-18.0); Mean Corpuscular HGB Conc 33.1 g/dl (32-36); Mean Corpuscular Hemoglobin 31.7 pg (26-34); Mean Corpuscular Volume 95.9 fl (80-100); Mean Platelet Volume 9.9 fl (7.4-10.4); Platelet Count Result 281 k/mm3 (150-375); Red Blood Count 4.16 M/mm3 (4.6-6.20); Red Cell Distribution Width 12.5 % (11.5-14.5); White Blood Count 5.4 K/mm3 (4.5-10.0)
[2023-08-09 19:12] LABS: Alanine Aminotransferase 23 U/L (6-50); Albumin Level 4.5 g/dL (3.5-5.1); Alkaline Phosphatase 55 U/L (38-126); Anion Gap 6 mmol/L (8-16); Aspartate Amino Transferase 46 U/L (17-59); Bilirubin,Total 1.3 mg/dL (0.2-1.3); Blood Urea Nitrogen 22 mg/dL (9-20); Calcium 9.3 mg/dL (8.4-10.2); Carbon Dioxide 30 mmol/L (22-30); Chloride 100 mmol/L (98-107); Cholesterol 167 mg/dL (0-200); Estimated Glomerular Filt Rate > 60; Glucose 98 mg/dL (65-110); HDL Direct 48 mg/dL; Potassium 4.5 mmol/L (3.4-5.0); Sodium 136 mmol/L (137-145); Triglycerides 72 mg/dL (<150)
[2023-08-09 19:24] LABS: LDL Cholesterol Direct 95 mg/dL
[2023-08-10 15:05] LABS: Prostate Specific Antigen 3.2 ng/mL (< OR = 4.0)
== END 2023-08-09 14:29 | disposition home or self-care (01) ==
LOC: ANHGOSHLAB 14:30
PROVIDERS: PCP Family Medicine; Visit Provider Nurse Practitioner
DX: Z00.00 Encounter for general adult medical examination without abnormal findings (principal); Z12.5 Encounter for screening for malignant neoplasm of prostate
CPT/HCPCS: 36415; 80053; 80061; 84153; 84443; 85027; G0103

== ENCOUNTER 2023-09-08 09:56 | Outpatient (CLI) | payer OTHER, SELFPAY ==
[2023-09-08 11:28] LABS: Basophils Percent Auto 0.7 % (0.2-1.2); Eosinophils Absolute Auto 0.2 K/mm3 (0-0.3); Eosinophils Percent Auto 4.1 % (0-4.4); Hematocrit 42.9 % (42.0-52.0); Hemoglobin 13.9 g/dL (14.0-18.0); Immature Granulocyte Absolute 0.02 K/mm3 (0.00-0.031); Immature Granulocyte Percent A 0.4 % (0-0.5); Mean Corpuscular HGB Conc 32.4 g/dl (32-36); Mean Corpuscular Hemoglobin 31.3 pg (26-34); Mean Corpuscular Volume 96.6 fl (80-100); Mean Platelet Volume 9.8 fl (7.4-10.4); Monocytes Absolute Auto 0.5 K/mm3 (0.1-0.6); Monocytes Percent Auto 9.4 % (2.6-8.5); Neutrophils Absolute Auto 3.1 K/mm3 (1.3-6.7); Neutrophils Percent Auto 55.4 % (45.5-73.1); Platelet Count Result 278 k/mm3 (150-375); Red Blood Count 4.44 M/mm3 (4.6-6.20); Red Cell Distribution Width 13.2 % (11.5-14.5); White Blood Count 5.7 K/mm3 (4.5-10.0)
[2023-09-08 18:44] LABS: Urine Cotinine POSITIVE
[2023-09-08 21:20] LABS: Hemoglobin A1C 5.4 % (<5.7)
== END 2023-09-08 09:57 | disposition home or self-care (01) ==
LOC: ANHSURGERY 10:00
PROVIDERS: PCP Family Medicine; Visit Provider Orthopaedic Surgery
DX: M17.11 Unilateral primary osteoarthritis, right knee (principal); Z01.818 Encounter for other preprocedural examination
CPT/HCPCS: 80307; 83036; 85025; 87081

== ENCOUNTER 2023-10-18 12:52 | Outpatient (CLI) | payer OTHER, SELFPAY ==
[2023-10-18 15:08] LABS: Albumin Level 4.6 g/dL (3.5-5.1); Anion Gap 7 mmol/L (8-16); Blood Urea Nitrogen 25 mg/dL (9-20); Calcium 9.5 mg/dL (8.4-10.2); Carbon Dioxide 29 mmol/L (22-30); Chloride 100 mmol/L (98-107); Estimated Glomerular Filt Rate > 60; Glucose 97 mg/dL (65-110); Potassium 4.2 mmol/L (3.4-5.0); Sodium 136 mmol/L (137-145)
[2023-10-18 15:18] LABS: Urine Cotinine NEGATIVE
== END 2023-10-18 12:53 | disposition home or self-care (01) ==
PROVIDERS: PCP Family Medicine; Visit Provider Orthopaedic Surgery
DX: Z01.818 Encounter for other preprocedural examination (principal); M17.11 Unilateral primary osteoarthritis, right knee
CPT/HCPCS: 80048; 80307; 82040; 86850; 86900; 86901

== ENCOUNTER 2023-10-24 00:46 | Day surgery (SDC) | payer OTHER, SELFPAY ==
--- NOTE | 2023-09-08 09:39 | PC.NURSE ---
Addendum entered by Ainsley Wilks RN 09/08/23 10:39: PT AWARE TO ARRIVE AT 10AM MORNING OF SURGERY & NOT 06AM Original Note: PRE-OP INSTRUCTIONS, PLEASE READ CAREFULLY Report to the Outpatient Waiting Room, entrance under the green pavilion located off [facility], at time _0600_ on date _10/05/23_. Planned Procedure Time: _1200_. PACK A SMALL OVERNIGHT BAG AND LEAVE IN THE CAR ALONG WITH YOUR WALKER Time changes happen often and if your time is changed the preop area will call you the afternoon before. - You and your visitor will be asked to self-screen and do not enter if you have any COVID symptoms. - A mask is optional within the hospital at this time. -VISITING HOURS 8AM-8PM Patients may have clear liquids (water, carbonated beverages, clear teas, apple juice) until 3 hours prior to surgery (0900 AM) with a maximum of 20 ounces. - No food from midnight until time of surgery Take the following medications with a SIP of water the morning of surgery: _TRAMADOL IF NEEDED_ DO NOT STOP ANY OF YOUR OTHER PRESCRIPTION MEDICATIONS PRIOR TO SURGERY ?EXCEPT THE FOLLOWING Medications to discontinue per physician ____NONE , Date to take last dose Please no make-up, nail thai, hairspray, perfume, deodorant, or body powder the day of surgery. No jewelry (including any body piercings) or valuables the day of surgery, leave them at home. Please take a shower or bath the night before, or the morning of, surgery with an antibacterial soap. Wear comfortable, loose fitting clothing. - Jewelry must be removed prior to entering the operating room. Rings and piercings that are not removed may be cut off. - The hospital will not accept responsibility for valuables. - Please leave all valuables, including medications, at home the day of surgery. If you are going home after surgery, a licensed gas truck driver must drive you home. - NO public transportation without another adult if you receive anesthesia. - We recommend that an adult stay with you for 24 hours following discharge. - We also recommend that you do not drive, make important decision, drink alcoholic beverages, or take any drugs that were not prescribed by your health care provider for at least 24 hours after your discharge time. Follow any additional instructions given to you from your surgeon. If you or anyone in your household have experienced Covid symptoms in the past week, please notify your surgeon or the nurse liaison at the phone number below for possible testing. Instructions given to _PATIENT & SPOUSE_and asked if any additional questions and then verbalized understanding. Patient advised to call surgeon office or pre surgery nurse liaison [phone] if any additional questions.
[2023-09-08 10:14] VITALS: BP 128/88; PULSE 80; RESP 20; TEMP 36.6; O2SAT 100; BMI 32.5
--- NOTE | 2023-10-18 09:26 | PC.NURSE ---
Report to the Outpatient Waiting Room, entrance under the green pavilion located off [facility], at time _0600 on date 10/24/23 . Planned Procedure Time: __0730 . Time changes happen often and if your time is changed the preop area will call you the afternoon before. - You and your visitor will be asked to self-screen and do not enter if you have any COVID symptoms. - A mask is optional within the hospital at this time. Patients may have clear liquids (water, carbonated beverages, clear teas, apple juice) until 3 hours prior to surgery( 4:30 AM) with a maximum of 20 ounces. - No food from midnight until time of surgery Take the following medications with a SIP of water the morning of surgery: NONE DO NOT STOP ANY OF YOUR OTHER PRESCRIPTION MEDICATIONS PRIOR TO SURGERY ?EXCEPT THE FOLLOWING Medications to discontinue per physician NONE Date to take last dose Please no make-up, nail faroese, hairspray, perfume, deodorant, or body powder the day of surgery. No jewelry (including any body piercings) or valuables the day of surgery, leave them at home. Please take a shower or bath the night before, or the morning of, surgery with an antibacterial soap. Wear comfortable, loose fitting clothing. Children are encouraged to wear pajamas. - Jewelry must be removed prior to entering the operating room. Rings and piercings that are not removed may be cut off. - The hospital will not accept responsibility for valuables. - Please leave all valuables, including medications, at home the day of surgery. If you are going home after surgery, a licensed race car driver must drive you home. - NO public transportation without another adult if you receive anesthesia. - We recommend that an adult stay with you for 24 hours following discharge. - We also recommend that you do not drive, make important decision, drink alcoholic beverages, or take any drugs that were not prescribed by your health care provider for at least 24 hours after your discharge time. For Pediatric surgeries, we recommend two adults accompany the child home. Follow any additional instructions given to you from your surgeon. If you or anyone in your household have experienced Covid symptoms in the past week, please notify your surgeon or the nurse liaison at the phone number below for possible testing. Telephone instructions given to __PATIENT and asked if any additional questions and then verbalized understanding. Patient advised to call surgeon office or pre surgery nurse liaison [phone] if any additional questions.
--- NOTE | 2023-10-18 09:32 | PC.NURSE ---
PT STATES NO CHANGE IN HEALTH HX SINCE LAST INTERVIEW ON 09/08/23 HAS STOPPED CHEWING TOBACCO
--- NOTE | 2023-10-21 07:48 | PM.IMHP ---
H&P: HPI History of Present Illness Date/Time: 10/21/23 07:48 Chief Complaint: Right knee DJD Narrative: 63-year-old male patient Dr. Roper who presents today for a right total knee arthroplasty. Patient has been having symptoms for approximately 2 years in the knee. They are progressively worsened. He had arthroscopy done in January of this year with minimal to no improvement of his symptoms. Patient is having problems with normal daily activities. It is limiting his activities as well. He minimizes anti-inflammatories due to history of hypertension. He does use Tylenol and tramadol for pain control. Patient does have severe medial compartment osteoarthritis in the knee and feels at this point is ready to proceed with total knee arthroplasty rather continue nonsurgical treatment. Review of Systems Review of Systems: All systems reviewed & are unremarkable except as noted in HPI and below PMFSH Past Medical History Medical History Benign prostatic hyperplasia BPH w urinary obs/LUTS Cerumen impaction Chronic left-sided low back pain without sciatica Degenerative joint disease of knee Hypertension Insomnia, unspecified Knee pain, left Medial meniscus tear Other abnormal glucose Other obstructive and reflux uropathy Right knee DJD Right knee pain Sleep disorder Tinea cruris Tobacco use disorder Weight gain Family History Family History Father Family history of malignant neoplasm Patient's father is Sibling Family history of pancreatic cancer Mother Family history of malignant neoplasm of ovary Social History Social History Social History: Caffeine-yes Smoking status: Never smoker Smokeless tobacco user: chewing tobacco Second hand tobacco smoke exposure: No Additional smoking assessment comments: CHEWING TOBACCO -LAST TIME 09/09/23 Alcohol intake: current Drinks per week: 7 Substance use: never Substance use type: does not use Living arrangements: with family Gender identity (if verbalized by the patient): Male Spiritual care concerns: No Meds Home Medications and Allergies Home Medications Medication Instructions Recorded Confirmed Type losartan 100 1 tablet PO DAILY #90 tabs 07/29/22 10/18/23 Rx mg-hydrochlorothiazide 25 mg tablet tramadol 50 mg tablet 50 mg PO Q6-8H PRN pain #30 tabs 07/21/23 10/18/23 Rx tadalafil 5 mg tablet (Cialis) 5 mg PO DAILY #90 tabs 09/06/23 10/18/23 Rx varenicline 0.5 mg (11)-1 mg (42) See Rx Instructions PO PER PKG DIR 09/16/23 10/18/23 Rx tablets in a dose pack #53 ea Allergies Allergy/AdvReac Type Severity Reaction Status Date / Time No Known Allergies Allergy Mild Verified 10/18/23 09:18 Exam Narrative: 63-year-old male he is 5 ft 10 and 231 lb his BMI is 33. Right knee range of motion is from 7-135 degrees. Ordered there is a mild varus alignment. Trace effusion. Normal stability in the knee. He has severe medial joint line tenderness. Normal quad strength. 2+ dorsalis pedis and posterior artery pulse palpable. Hip range of motion is full without discomfort, negative Stinchfield maneuver. Does have prominent varicose veins in both lower extremities without edema. Resp: Auscultation: clear to auscultation bilaterally Cardio: Rate: regular rate Rhythm: regular rhythm Assessment and Plan Assessment and plan (1) Degenerative joint disease of knee: Qualifiers: Osteoarthritis type: primary Laterality: bilateral Qualified Code(s): M17.0 - Bilateral primary osteoarthritis of knee Code(s): M17.10 - Unilateral primary osteoarthritis, unspecified knee Status: Acute Plan 63-year-old male who has severe medial compartment osteoarthritis left knee. At this point he feels he is ready to procee
[2023-10-24] VITALS (18 sets, daily range): BP systolic 96–148; BP diastolic 59–92; PULSE 83–109; RESP 10–24; TEMP 36.2–36.8; O2SAT 92–99
--- NOTE | 2023-10-24 | ECHO_ITS ---
Patient Info Name: Markus Lewis Age: 63 years : 1960 Gender: Male Ht: 70 in Wt: 233 lbs BSA: 2.32 m2 HR: 91 bpm BP: 120 / 76 mmHg Heart Rhythm: Sinus Rhythm Technical Quality: Fair Exam Date: 10/24/2023 3:51 PM Exam Location: Echo Lab Patient Status: Outpatient Admit Date: 10/24/2023 Staff Ordering Physician: Manuel Barba MD Special Needs Caregiver: Unique Hull RDCS Attending Provider: Chino Martinez MD Referring Physician: Freda HUERTAS; Exam Type: CA echo dop color flow w con Study Info Indications - Mitral regurgitation Complete two-dimensional, color flow and Doppler transthoracic echocardiogram is performed with contrast to opacify the left ventricle and to improve the deliniation of the left ventricle endocardial borders. Contrast/Agitated Saline Contrast/Ag. Saline: Definity Amount: 2.00 ml Administered By: Unique Hull RDCS Existing IV Access: Yes IV Access Condition: patent with no signs of infiltration Summary 1. Left ventricular chamber dimension is normal. 2. Left ventricular systolic function is hyperdynamic, estimated at >70%. 3. There is moderately increased left ventricular wall thickness. 4. The left ventricular diastolic function is grade I diastolic dysfunction. 5. Right atrial chamber dimension is mild to moderately enlarged. 6. Left atrial chamber dimension is mildly enlarged. 7. There is mild tricuspid valve regurgitation. 8. No pulmonary hypertension, estimated pulmonary arterial systolic pressure is 33 mmHg. Left Ventricle Left ventricular chamber dimension is normal. Left ventricular systolic function is hyperdynamic, estimated at >70%. There is moderately increased left ventricular wall thickness. The left ventricular diastolic function is grade I diastolic dysfunction. Right Ventricle Right ventricular chamber dimension is normal. Right ventricular systolic function is normal. Left Atria Left atrial chamber dimension is mildly enlarged. Right Atria Right atrial chamber dimension is mild to moderately enlarged. Aortic Valve The aortic valve is probable trileaflet. There is no aortic valve stenosis. There is no aortic valve regurgitation. Pulmonic Valve The pulmonic valve is not well visualized. Mitral Valve The mitral valve has normal leaflets. There is trace mitral valve regurgitation. Tricuspid Valve The tricuspid valve leaflets are normal. There is mild tricuspid valve regurgitation. No pulmonary hypertension, estimated pulmonary arterial systolic pressure is 33 mmHg. Pericardium/Pleural The pericardium appears normal. There is no pericardial effusion. Inferior Vena Cava Normal inferior vena cava with >50% collapse upon inspiration consistent with normal right atrial pressure, 5 mmHg. Aorta The aortic root size at the sinus of Valsalva is normal. The prox ascending aorta size is normal. There is mild-moderate aortic atherosclerosis. Left Ventricular Outflow Tract Name Value Normal LVOT 2D LVOT Diameter 2.07 cm LVOT Doppler LVOT Peak Gradient 12 mmHg LVOT Mean Gradient 6 mmHg LVOT VTI
--- NOTE | ~2023-10-24 | XR_ITS ---
Right Knee Technique: Portable AP and crosstable lateral views Clinical History: Status post TKR Findings: Patient is status post total knee replacement. Orthopedic hardware alignment appears anatom ic. No hardware complication is evident. Subcutaneous emphysema and swelling is likely postoperative in nature. No acute osseous fracture is seen. Impression: Status post total knee replacement, without evidence of hardware complication. Reviewed, dictated and finalized at location . OW TINTER Impression: Status post total knee replacement, without evidence of hardware complication.
--- NOTE | 2023-10-24 06:41 | WPDANESEPPF ---
Anes - Initial Pre Proc Eval Procedure: Operation Date: 10/24/23 07:30 Proposed Procedures p Right Total Knee Arthroplasty - Chino Martinez MD Date/Time: 10/24/23 06:41 Surgeon: Chino Martinez MD Pre Op Diagnosis: right knee oa Patient Data Age: 63 Gender: M Height: 1.78 m Weight: 105.8 kg Last Vital Signs Temp 36.6 C 09/08/23 10:14 Pulse 80 09/08/23 10:14 Resp 20 09/08/23 10:14 BP 128/88 09/08/23 10:14 Pulse Ox 100 09/08/23 10:14 O2 Del Method Room Air 09/08/23 10:14 Allergies Allergy/AdvReac Type Severity Reaction Status Date / Time No Known Allergies Allergy Mild Verified 10/18/23 09:18 Home Medications Medication Instructions Recorded Confirmed Type losartan 100 1 tablet PO DAILY #90 tabs 07/29/22 10/18/23 Rx mg-hydrochlorothiazide 25 mg tablet tramadol 50 mg tablet 50 mg PO Q6-8H PRN pain #30 tabs 07/21/23 10/18/23 Rx tadalafil 5 mg tablet (Cialis) 5 mg PO DAILY #90 tabs 09/06/23 10/18/23 Rx varenicline 0.5 mg (11)-1 mg (42) See Rx Instructions PO PER PKG DIR 09/16/23 10/18/23 Rx tablets in a dose pack #53 ea Patient hx anesthesia problems: none Family hx anesthesia problems: none Results Review: All pre-operative results and documents have been reviewed as part of the pre-operative evaluation. 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 Right knee pain Sleep disorder Tinea cruris Tobacco use disorder Weight gain Surgical History Surgical History (Updated 10/24/23 @ 06:41 by Tariq Manzano MD) H/O arthroscopic knee surgery Family History Family History Father Family history of malignant neoplasm Patient's father is Sibling Family history of pancreatic cancer Mother Family history of malignant neoplasm of ovary Social History Social History Social History: Caffeine-yes Smoking status: Never smoker Smokeless tobacco user: chewing tobacco Second hand tobacco smoke exposure: No Additional smoking assessment comments: CHEWING TOBACCO -LAST TIME 09/09/23 Alcohol intake: current Drinks per week: 7 Substance use: never Substance use type: does not use Living arrangements: with family Gender identity (if verbalized by the patient): Male Spiritual care concerns: No Anes - Eval Final PreProcedure Day of Procedure 10/24/23 06:41 Patient weight: obese Heart: regular rate and rhythm Lungs: clear to auscultation Airway: Mallampati scale class II Neurological: alert and oriented Last oral intake: >/= 8 hours ASA classification: II Emergent: no Anesthetic plan: proceed Anesthesia type and monitoring: general ETT and standard monitoring Results Review: All pre-operative results and documents have been reviewed as part of the pre-operative evaluation. Informed Consent: The patient's anesthetic plan and its attendant risks and benefits were discussed with the patient/family/POA. Questions were solicited and answers provided to the satisfaction of the patient/family/POA.
[2023-10-24] MEDS: TRANEXAMIC ACID 1,000MG/ISO100 1,000 MG/100 ML BAG 200 MG IVPB (07:00)
[2023-10-24] MEDS: VANCOMYCIN 1,500 MG/NS 500 ML BAG 250 MG IVPB (07:00)
[2023-10-24] MEDS: LACTATED RINGERS 1,000 ML 30 ML IV CONT ×2 (07:00→10:48)
[2023-10-24] MEDS: ACETAMINOPHEN 500 MG TABLET 1000 MG PO (07:00)
--- NOTE | 2023-10-24 07:12 | WPDHPUPDATE1 ---
History and Physical Update Update Date/Time: 10/24/23 07:12 History and Physical has been reviewed, including an updated exam of the patient. There are NO changes in the patient's condition. Risks, benefits, and alternatives have been discussed and questions answered. Patient agrees to proceed with procedure.
[2023-10-24] MEDS: ceFAZolin 2 GM/D5W 50 ML 2 GM/50 ML BAG IVPB (07:34)
[2023-10-24] MEDS: ceFAZolin SODIUM 1 GM VIAL 3 GM (08:04)
[2023-10-24] MEDS: KETOROLAC 15 MG/ML VIAL (*BKC) IV PUSH ×2 (09:46→15:10)
[2023-10-24] MEDS: TRANEXAMIC ACID 1,000 MG/10 ML AMPUL 1000 MG IV PUSH (09:46)
[2023-10-24] MEDS: ceFAZolin SODIUM 1 GM VIAL IV PUSH (09:46)
--- NOTE | 2023-10-24 10:34 | W.PM.PROC2 ---
Procedure Note - Detailed Date of Procedure 10/24/23 Pre-op Diagnosis right knee oa Post-op Diagnosis Same Procedure Performed Right total knee arthroplasty Surgeon Chino Martinez MD [employer] Anesthesia General Description of Procedure Patient was brought to the operating room and general anesthesia was administered. He received 2 g of Ancef weight based vancomycin 1 g of tranexamic acid preoperatively. The right leg was prepped draped usual fashion. Limb was exsanguinated tourniquet elevated to 300 mmHg. A 7 in longitudinal midline incision was used in a standard parapatellar arthrotomy utilized. Infrapatellar fat pad partially excised. There was an inferomedial osteophyte on the patella which was removed and the articular cartilage was actually very good condition and elected for non resurfacing of his patella. Minimal lateral facetectomy was performed. A guide swathi was inserted on femoral canal after aspiration of canal contents using the 5 degree valgus cutting bushing 9 mm of bone removed from the distal femur. Next the tibial plateau was cut. We utilized a skim cut just under the low point the medial tibial plateau where there was a sclerotic where depression. This removed 10 mm from lateral side. Cut was made perpendicular to the axis of the tibia. Meniscal remnants were excised and the PCL was recessed. In flexion there was a flexion gap of 8 mm medially 12 mm laterally. The femoral Sizer was applied the distal femur and 5? of external rotation which matched Whitesides line posterior referencing pinholes were placed and we applied the size 70 vanguard cutting block AP and chamfer cuts were made. This had an excellent fit medial to lateral but was a little bit large relative to the anterior cortex. I felt we would likely downsized 1 size. Appropriate balance with the trial CR 10 insert noted at 90? of flexion we were just a little bit tight extension. The tibia was sized to a size 75 which fit line to line posterolateral to anteromedial. This was punched. Bone quality was excellent. We trialed with the 10 insert and we had appropriate stability with the knee at 90? but we were tight in extension particularly medially. Careful trimming of the medial tibial osteophyte was performed without medial capsule release. We were still lacking about 3? of extension but we had less tightness medially. Additional mm of bone therefore was removed the distal femur chamfer cuts revisited. Posterior femoral osteophyte which was fairly prominent on the posterior aspect of medial femoral condyle was excised and on repeat trialing the 10 insert the knee came out to full extension with negative bounce with 1-2 mm of medial and lateral opening appropriate stability to anterior drawer at 90?. The arthrotomy towel clipped the knee still came out to full extension with 1 mm medial to lateral opening. Patellar tracking was poor but the tourniquet was dropped. I felt that the size 70 femur was too proud anteriorly and I felt patellar tracking would be better with the 67.5. We applied the 67.5 cutting block the distal femur and carefully revised the anterior and anterior chamfer cuts and we applied the 67.5 trial and we had excellent fit flush with the anterior cortex proximally with about 2 mm of bone remaining exposed on either side of the trial implant distally. On trialing we had the same range of motion stability findings as above. The lug holes were drilled. Step drill was used to make multiple perforations in the tibial plateau and distal femur the bony surfaces thoroughly irrigated and dried. Using 2 batches of methylmethacrylate 1 the gentamicin powder the cement was immediately applied the 75 tibial component then the 67.5 femoral component. Cement was applied to the tibia pressurized tibial component fully seated the cement applied to the femur the femoral component fully seated the knee brought into extension with the 11 mm 5 1 insert for
--- NOTE | 2023-10-24 10:56 | PM.OP ---
Procedure Note - Brief Procedure Note - Brief Date of procedure: 10/24/23 right knee oa Procedure performed: Right total knee arthroplasty Surgeon: CHEVY Thomas Description of procedure: 63-year-old male who underwent right total knee arthroplasty on 10/24. I was involved in the procedure including positioning patient on your table and 1st assisting to the time of surgery total time spent was 3 hours
[2023-10-24] MEDS: fentaNYL CITRATE INJ (*CRX) 100 MCG/2 ML VIAL 25 MCG IV PUSH ×8 (11:00→11:30)
[2023-10-24] MEDS: HYDROmorphone HCL INJ (*CRX) 1 MG/ML SYR 0.5 MG IV PUSH ×3 (11:34→11:48)
[2023-10-24 12:29] LABS: Anion Gap 7 mmol/L (8-16); Blood Urea Nitrogen 32 mg/dL (9-20); Calcium 8.6 mg/dL (8.4-10.2); Carbon Dioxide 22 mmol/L (22-30); Chloride 106 mmol/L (98-107); Estimated CRCL calculation 68 ml/min; Estimated Glomerular Filt Rate > 60; Glucose 171 mg/dL (65-110); Magnesium 1.9 mg/dL (1.6-2.3); Phosphorus 3.1 mg/dL (2.5-4.5); Potassium 4.2 mmol/L (3.4-5.0); Sodium 135 mmol/L (137-145)
[2023-10-24] MEDS: oxyCODONE HCL (*CRX) 5 MG TAB IR PO ×3 (13:57→20:37)
[2023-10-24] MEDS: SODIUM CHLORIDE 0.9% IV 1,000 ML 125 ML IV CONT (13:57)
--- NOTE | 2023-10-24 14:42 | ECG_ITS ---
Measurements Intervals [place] Rate: 93 P: -4 [place]: 196 QRS: 43 QRSD: 102 T: 33 QT: 340 QTc: 424 Interpretive Statements SINUS RHYTHM WITH OCCASIONAL VENTRICULAR PREMATURE COMPLEXES NONSPECIFIC ST & T-WAVE ABNORMALITY BORDERLINE ECG COMPARED TO ECG 01/06/2023 15:00:59 T-WAVE ABNORMALITY NOW PRESENT Electronically Signed On 10-24-2023 17:26:26 FRONT END APPLICATION DEVELOPER by Silvano Sharma M.D.
--- NOTE | 2023-10-24 15:06 | PM.CNCAR ---
Assessment and Plan Assessment and plan (1) Mitral regurgitation: Code(s): I34.0 - Nonrheumatic mitral (valve) insufficiency Status: Acute Plan This is a 63-year-old man who earlier today underwent uneventful right total knee arthroplasty. He is not known to have any specific cardiac diagnosis he was apparently having some ectopic activity in the OR none of which was recorded on the chart for my review. He is currently in a stable sinus rhythm. On examination he does have a murmur of mitral valve regurgitation which he cannot recall being told of in the past. I am going to get an updated EKG and request an echocardiogram/Doppler to quantify the valvular disease that is noted on his exam. Further recommendations will be forthcoming after review of his a echocardiogram Manuel Barba MD [facility] History of Present Illness History of Present Illness Consult date/time: 10/24/23 15:06 Reason For Visit: right knee oa Narrative: This is a 63-year-old man who I am seeing at the request of his orthopedic surgeon who performed a right knee replacement earlier today. I am seeing him apparently because of a arrhythmias that were noted either in surgery or in the postop area. I was told that he was having PACs and bigeminy. The order specifically does not say whether he was having atrial or ventricular bigeminy. He was placed on telemetry in room 325 his current rhythm is sinus at the moment without any arrhythmias. Patient reports that he has never been known to have any cardiac problems that he can recall he does have a history of longstanding hypertension and no history of dyslipidemia or diabetes. He has never been a smoker. He does not have any history of chest pain shortness of breath orthopnea PND or edema. There has been no 12 lead electrocardiogram recorded in the chart today. In ECG from January of this year showed sinus rhythm with voltage evidence of LVH and some smiled secondary repolarization abnormalities. Review of Systems Constitutional: Constitutional: Reports no additional constitutional complaints Eyes: Eyes: Reports no additional eye complaints ENT: Reports system reviewed and no additional complaints, except as documented Cardiovascular: Cardiovascular: Reports no additional cardiovascular complaints Respiratory: Respiratory: Reports no additional respiratory complaints Gastrointestinal: Gastrointestinal: Reports no additional gastrointestinal complaints Musculoskeletal: Musculoskeletal: Reports as per HPI Integumentary/Breasts: Skin/Breast: Reports system reviewed and no additional complaints, except as docu Neurologic: Reports system reviewed and no additional complaints, except as documented Endocrine: Endocrine: Reports no additional endocrine complaints Hematologic/Lymphatic: Hematologic/Lymphatic: Reports no additional hematologic/lymphatic complaints Allergic/Immunologic: Allergic/Immunologic: Reports no additional allergic/immunologic complaints PMFSH Past Medical History Medical History Benign prostatic hyperplasia BPH w urinary obs/LUTS Cerumen impaction Chronic left-sided low back pain without sciatica Degenerative joint disease of knee Hypertension Insomnia, unspecified Knee pain, left Medial meniscus tear Other abnormal glucose 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
--- NOTE | 2023-10-24 15:08 | ADMGEN ---
This patient, Markus Lewis, was admitted to [facility] Room 325-01. Patient/family oriented to hospital policies and general routines including ID bracelet, bed and alarms, visiting hours, pain management, procedures, bathroom and other care routines, personal items, smoking policy, room service/diet, and visiting hours. Information on how to activate the Rapid Response Team has been discussed. Patient/Family are encouraged to report perceived risks to care and to ask questions if they do not understand what they are told or what they should do.
[2023-10-24] MEDS: ceFAZolin 1 GM/NS 50 ML 1 GM/50 ML BAG IVPB ×2 (15:11→23:30)
[2023-10-24] MEDS: ACETAMINOPHEN 325 MG TABLET 650 MG PO ×2 (16:49→20:37)
[2023-10-24] MEDS: ONDANSETRON INJ 4 MG/2 ML VIAL IV PUSH (16:50)
[2023-10-24] MEDS: SENNA/DOCUSATE SODIUM TABLET 2 TAB PO (16:50)
[2023-10-24] MEDS: PERFLUTREN LIPID MICROSPHERES 1.5 ML VIAL DILUTED TO 10 ML TOTAL VOLUME IV PUSH (16:53)
--- NOTE | 2023-10-24 16:54 | IVDEFINITY ---
Prior to administration of IV Definity the patient was educated on the risks and benefits of the imaging enhancing agent including potential adverse side effects. The patient verbalized understanding. Allergies were verified. No exclusion criteria were identified and at least one of the following inclusion criteria were met: 1) physician request, 2) patient technically difficult to image (per the [employer]chocardi[employer] guidelines of two or more segments not discernable within the apical view), or 3) questionable left ventricular function. ?
[2023-10-24] MEDS: VANCOMYCIN 1,000 MG/NS 250 ML 1,000 MG/250 ML BAG 250 MG IVPB (18:08)
[2023-10-24] MEDS: FAMOTIDINE 20 MG TABLET PO (20:36)
[2023-10-25] VITALS: BP 126/79; PULSE 95; PULSE 97; RESP 14; TEMP 36.3; O2SAT 99
[2023-10-25] MEDS: ACETAMINOPHEN 325 MG TABLET 650 MG PO ×3 (00:33→08:44)
[2023-10-25] MEDS: oxyCODONE HCL (*CRX) 5 MG TAB IR PO ×4 (00:33→08:50)
[2023-10-25 04:00] VITALS: BP 118/81; PULSE 92; PULSE 99; RESP 16; TEMP 36.4; O2SAT 99
[2023-10-25] MEDS: VANCOMYCIN 1,000 MG/NS 250 ML 1,000 MG/250 ML BAG 250 MG IVPB (06:23)
[2023-10-25 06:39] LABS: Basophils Percent Auto 0.1 % (0.2-1.2); Hematocrit 34.9 % (42.0-52.0); Hemoglobin 11.4 g/dL (14.0-18.0); Immature Granulocyte Absolute 0.06 K/mm3 (0.00-0.031); Immature Granulocyte Percent A 0.5 % (0-0.5); Lymphocytes Percent Auto 9.2 % (18.3-44.2); Mean Corpuscular HGB Conc 32.7 g/dl (32-36); Mean Corpuscular Hemoglobin 31.8 pg (26-34); Mean Corpuscular Volume 97.2 fl (80-100); Mean Platelet Volume 9.6 fl (7.4-10.4); Monocytes Absolute Auto 0.8 K/mm3 (0.1-0.6); Monocytes Percent Auto 7.3 % (2.6-8.5); Neutrophils Percent Auto 82.9 % (45.5-73.1); Platelet Count Result 201 k/mm3 (150-375); Red Blood Count 3.59 M/mm3 (4.6-6.20); Red Cell Distribution Width 13.6 % (11.5-14.5); White Blood Count 10.9 K/mm3 (4.5-10.0)
[2023-10-25 06:51] LABS: Anion Gap 9 mmol/L (8-16); Blood Urea Nitrogen 27 mg/dL (9-20); Calcium 8.4 mg/dL (8.4-10.2); Carbon Dioxide 24 mmol/L (22-30); Chloride 105 mmol/L (98-107); Estimated CRCL calculation 68 ml/min; Estimated Glomerular Filt Rate > 60; Glucose 126 mg/dL (65-110); Potassium 4.2 mmol/L (3.4-5.0); Sodium 138 mmol/L (137-145)
[2023-10-25 08:00] VITALS: BP 119/70; PULSE 86; RESP 18; TEMP 36.5; O2SAT 96
[2023-10-25] MEDS: ONDANSETRON INJ 4 MG/2 ML VIAL IV PUSH (08:38)
[2023-10-25] MEDS: CELECOXIB 200 MG CAPSULE PO (08:45)
[2023-10-25] MEDS: SENNA/DOCUSATE SODIUM TABLET 2 TAB PO (08:46)
[2023-10-25] MEDS: FAMOTIDINE 20 MG TABLET PO (08:46)
[2023-10-25] MEDS: LOSARTAN POTASSIUM 100 MG TABLET PO (08:47)
[2023-10-25] MEDS: APIXABAN 2.5 MG TABLET PO (08:48)
[2023-10-25] MEDS: hydroCHLOROthiazide 25 MG TABLET PO (08:48)
[2023-10-25] MEDS: CEFDINIR 300 MG CAPSULE PO (08:49)
[2023-10-25] MEDS: polyethylene glycoL 3350 17 GM POWD.PACK PO (08:51)
[2023-10-25] MEDS: ceFAZolin 1 GM/NS 50 ML 1 GM/50 ML BAG IVPB (08:54)
--- NOTE | 2023-10-25 10:02 | PM.PNCARD ---
Progress Note: A&P Assessment and Plan (1) Mitral regurgitation: Code(s): I34.0 - Nonrheumatic mitral (valve) insufficiency Status: Acute Assessment and Plan: Echo showed trace MR. Outpatient surveillance. (2) Ventricular bigeminy: Code(s): I49.8 - Other specified cardiac arrhythmias Status: Acute Assessment and Plan: EKG showed sinus rhythm with occasional PVC. On media monitor he has had sinus rhythm with intermittent ventricular bigeminy and occasional PVC's. Plan for outpatient media monitor to quantify PVC burden but since he is asymptomatic no plan for beta de at this point. Subjective Date/time seen: 10/25/23 10:02 Interval history: Cardiology follow up for ectopy He's having significant pain in his right knee and didn't sleep well last night. Denies any palpitations, chest pain, shortness of breath. Review of Systems Constitutional: Constitutional: Reports no additional constitutional complaints Eyes: Eyes: Reports no additional eye complaints ENT: Reports system reviewed and no additional complaints, except as documented Cardiovascular: Cardiovascular: Reports no additional cardiovascular complaints Respiratory: Respiratory: Reports no additional respiratory complaints Gastrointestinal: Gastrointestinal: Reports no additional gastrointestinal complaints Musculoskeletal: Musculoskeletal: Reports as per HPI Integumentary/Breasts: Skin/Breast: Reports system reviewed and no additional complaints, except as docu Neurologic: Reports system reviewed and no additional complaints, except as documented Endocrine: Endocrine: Reports no additional endocrine complaints Hematologic/Lymphatic: Hematologic/Lymphatic: Reports no additional hematologic/lymphatic complaints Allergic/Immunologic: Allergic/Immunologic: Reports no additional allergic/immunologic complaints Exam Const: General: no acute distress and uncomfortable (knee pain ) HENMT: Mouth: Yes moist mucous membranes Eyes: Sclera: sclerae normal Pupils: Equal, round and reactive pupils present Neck: Neck: supple and no JVD Resp: Effort & Inspection: normal respiratory effort Auscultation: clear to auscultation bilaterally Cardio: Rate: regular rate Rhythm: regular rhythm Heart sounds: Murmur heart sound present systolic GI: Auscultation: normal bowel sounds Skin: General skin exam: normal color Neuro: Cranial nerves: Yes Equal, round and reactive pupils present Other: Alert and oriented x3 Extrem: Right lower extremity: knee (surgical dressing intact ) Details: swelling Other: Good perfusion, no edema Objective Data Vital Signs Vital Signs: Vital Signs - 24 hr 10/24/23 10:48 10/24/23 11:15 10/24/23 11:30 Temperature 36.8 C Pulse Rate 109 H 98 92 Respiratory Rate 19 15 15 Blood Pressure 128/63 130/75 131/68 Pulse Oximetry 98 98 97 Oxygen Delivery Simple Face Mask Room Air Room Air Oxygen Flow Rate 8 10/24/23 11:45 10/24/23 12:30 10/24/23 12:45 Temperature Pulse Rate 92 92 86 Respiratory Rate 14 14 24 H Blood Pressure 120/65 96/59 L 114/68 Pulse Oximetry 92 99 94 Oxygen Delivery Room Air Nasal Cannula Nasal Cannula Oxygen Flow Rate 2 2 10/24/23 13:00 10/24/23 11:00 10/24/23 12:00 Temperature Pulse Rate 91 95 95 Respiratory Rate 12 14 12 Blood Pressure 120/76 148/78 H 117/70 Pulse Oximetry 99 98 98 Oxygen Delivery Nasal Cannula Simple Face Mask Nasal Cannula Oxygen Flow Rate 2 8 2 10/24/23 12:15 10/24/23 14:00 10/24/23 13:35 Temperature 36.2 C L Pulse Rate 92 83 Respiratory Rate 10 L 16 Blood Pressure 124/62 123/77 Pulse Oximetry 98 97 Oxygen Delivery Nasal Cannula Room Air Oxygen Flow Rate 2 10/24/23 13:50 10/24/23 14:20 10/24/23 15:20 Temperature 36.4 C 36.5 C 36.7 C Pulse Rate 85 89 89 Respiratory Rate 16 16 16 Blood Pressure 131/72 125/60 106/68 Pulse Oximetry 97 97 95 Oxygen Delivery Oxygen
[2023-10-25 10:57] VITALS: BP 125/72; PULSE 84; RESP 18; TEMP 36.6; O2SAT 97
--- NOTE | 2023-10-25 11:02 | PM.PNORT ---
Progress Note: A&P Assessment and Plan (1) History of total right knee replacement: Code(s): Z96.651 - Presence of right artificial knee joint Status: Acute Plan The patient is postop day 1 status post total knee arthroplasty doing well he is ready for discharge home. See discharge instructions and discharge orders, the patient voiced understanding and agrees with the above plan. Subjective Subjective Date/Time Seen: 10/25/23 11:02 Interval history: Patient is doing better today did have some postop pain with physical therapy but tolerated okay. He states in bed now he does not have any pain. He has also been cleared by Cardiology after monitoring overnight for bigeminy, he will have a heart monitor that he goes home with and follow up with language pathologist otherwise no concerns were noted by the language pathologist. Patient's vital signs are stable is otherwise feeling well. No problems postop day 1 status post total knee arthroplasty and he is ready to go home. Today at bedside we went over the postop instructions in detail regarding total knee arthroplasty the patient and his voiced understanding and agree the above plan. Review of Systems Review of Systems: Ten point review of systems otherwise negative Exam Narrative: Vital signs stable afebrile neurovascular patient is intact wound dressing clean and dry calves are benign patient is alert oriented x3. Normal mood and affect. Pain is well controlled at this point in bed. Tolerated physical therapy and was able to achieve the goals to be discharged home. Objective Data Vital Signs Vital Signs: Vital Signs - 24 hr 10/24/23 11:15 10/24/23 11:30 10/24/23 11:45 Temperature Pulse Rate 98 92 92 Respiratory Rate 15 15 14 Blood Pressure 130/75 131/68 120/65 Pulse Oximetry 98 97 92 Oxygen Delivery Room Air Room Air Room Air Oxygen Flow Rate 10/24/23 12:30 10/24/23 12:45 10/24/23 13:00 Temperature Pulse Rate 92 86 91 Respiratory Rate 14 24 H 12 Blood Pressure 96/59 L 114/68 120/76 Pulse Oximetry 99 94 99 Oxygen Delivery Nasal Cannula Nasal Cannula Nasal Cannula Oxygen Flow Rate 2 2 2 10/24/23 12:00 10/24/23 12:15 10/24/23 14:00 Temperature Pulse Rate 95 92 Respiratory Rate 12 10 L Blood Pressure 117/70 124/62 Pulse Oximetry 98 98 Oxygen Delivery Nasal Cannula Nasal Cannula Room Air Oxygen Flow Rate 2 2 10/24/23 13:35 10/24/23 13:50 10/24/23 14:20 Temperature 36.2 C L 36.4 C 36.5 C Pulse Rate 83 85 89 Respiratory Rate 16 16 16 Blood Pressure 123/77 131/72 125/60 Pulse Oximetry 97 97 97 Oxygen Delivery Oxygen Flow Rate 10/24/23 15:20 10/24/23 17:51 10/24/23 16:00 Temperature 36.7 C Pulse Rate 89 90 Respiratory Rate 16 Blood Pressure 106/68 Pulse Oximetry 95 Oxygen Delivery Room Air Oxygen Flow Rate 10/24/23 20:37 10/24/23 20:00 10/25/23 00:00 Temperature 36.4 C 36.3 C L Pulse Rate 99 89 95 Respiratory Rate 14 14 Blood Pressure 120/77 126/79 Pulse Oximetry 98 99 Oxygen Delivery Oxygen Flow Rate 10/25/23 00:00 10/25/23 04:00 10/25/23 04:00 Temperature 36.4 C Pulse Rate 97 99 92 Respiratory Rate 16 Blood Pressure 118/81 Pulse Oximetry 99 Oxygen Delivery Oxygen Flow Rate 10/25/23 08:00 Temperature 36.5 C Pulse Rate 86 Respiratory Rate 18 Blood Pressure 119/70 Pulse Oximetry 96 Oxygen Delivery Oxygen Flow Rate Intake/Output Intake/Output: Intake & Output 10/22/23 10/23/23 10/24/23 10/25/23 23:59 23:59 23:59 23:59 Intake Total 550 690 Output Total 200 Balance 550 490 Meds/Results Medications: Active Medications Generic Name Dose Route Start Last Admin Trade Name Aditi PRN Reason Stop Dose Admin Acetaminophen 650 mg 10/24/23 17:00 10/25/23 08:44 Acetaminophen 325 Mg Tablet PO 650 mg Q4HR REGIS Administration Apixaban 2.5 mg 10/25/23 09:00 10/25/23 08:48 Apixaban 2.5 Mg Tablet PO 11/05/23
--- NOTE | 2023-10-25 11:21 | PM.DS ---
DS: Admitting Diagnosis Discharge Date 10/25/2023 Admitting Diagnosis Advanced primary osteoarthritis right knee joint Discharge diagnosis same status post right total knee arthroplasty. DS: Summary Hospital Course Hospital Course: The patient was admitted overnight for postop pain control and observation status post right total knee arthroplasty done on October 24, [address] Martinez. The patient did develop some bigeminy and this was monitored overnight cardiology was consulted the patient was kept in IMU overnight for observation and was cleared medically and by the manager small business for discharge home today. The patient will have some home monitoring with a heart monitor and follow-up with the manager small business but no new medications were ordered and otherwise the patient was stable for discharge to home. The patient was up ambulating independently with a walker in physical therapy stated he had significant pain with trying to do range of motion but otherwise was able to do it and is now comfortable in the bed after therapy. Vital signs are stable he is afebrile neurovascularly is intact wound dressing clean and dry calves are benign tolerating p.o. well. He is in stable condition. Today we talked about discharge instructions in detail, the patient voiced understanding and agreed with the above plan. He will continue his home medications we also went over the new medication list that he is to take he will be on blood thinners for 14 days using Eliquis 2.5 mg b.i.d., Celebrex daily for 6 weeks, oxycodone 5 mg q.4 hours on a scheduled basis along with Tylenol 650 mg q.4 hours to help with pain control as well. Docusate Senokot 2 tabs b.i.d. and also MiraLax powder 1 packet daily to prevent constipation hold for loose stools. He will also be on Omnicef 300 mg b.i.d. x1 week patient was instructed to elevate the leg change dressing in 1 week he may shower with the dressing in place he was told to keep his leg above his heart as much as possible get up every hour to move around work on his exercises 5 times a day and also will have outpatient physical therapy he has not decided chair more than 30 minutes at a time for meal only to help prevent swelling is instructed to call the office immediately for any problems difficulties or questions and will follow-up at 2 weeks postop for wound recheck with Dr. Martinez Time Spent with Patient Time attestation: Total time spent providing and/or coordinating discharge services: Exam Narrative: Vital signs stable afebrile neurovascular intact wound clean and dry calves benign up ambulating independently with a walker tolerating p.o. well alert oriented x3. Normal mood and affect. No acute distress stable condition DS: Data Data Completed and Pending Labs on day of discharge: Labs from last 24 hours 10/25/23 10/24/23 06:22 12:03 WBC 10.9 H RBC 3.59 L Hgb 11.4 L Hct 34.9 L MCV 97.2 MCH 31.8 MCHC 32.7 RDW 13.6 Plt Count 201 MPV 9.6 Immature Gran % (Auto) 0.5 Neut % (Auto) 82.9 H Lymph % (Auto) 9.2 L [place] % (Auto) 7.3 Eos % (Auto) 0.0 Baso % (Auto) 0.1 L Lymph # (Auto) 1.00 [place] # (Auto) 0.8 H Eos # (Auto) 0.0 Baso # (Auto) 0.0 Abs Immat Gran (auto) 0.06 H Absolute Neuts (auto) 9.0 H Absolute Nucleated RBC 0.0 Nucleated RBC % 0.0 Sodium 138 135 L Potassium 4.2 4.2 Chloride 105 106 Carbon Dioxide 24 22 Anion Gap 9 7 L BUN 27 H 32 H Creatinine 1.20 1.20 Estim Creat Clear Calc 68 68 Estimated GFR > 60 > 60 Glucose 126 H 171 H Calcium 8.4 8.6 Phosphorus 3.1 Magnesium 1.9 Procedures/Treatments: Right total knee arthroplasty Discharge Plan Discharge Attending physician on discharge: Chino Martinez Consulting providers: Silvano Sharma Discharging Clinician: Juan Carlos Villalba Anticipated Discharge Date/Time: 10/25/23 13:07 Patient Disposition: Home, Self-Care Activity: march shower Diet: as to
--- NOTE | 2023-10-25 14:16 | P.PNAN_ITS ---
Anes - Prog Note Post-Op Date/Time: 10/25/23 14:16 Cardiovascular status: normal Respiratory status: normal Airway patency: baseline Mental status: baseline Post-Op hydration status: normal Vital Signs: Last Vital Signs Temp 97.8 F 10/25/23 10:57 Pulse 84 10/25/23 10:57 Resp 18 10/25/23 10:57 BP 125/72 10/25/23 10:57 Pulse Ox 97 10/25/23 10:57 O2 Del Method Room Air 10/24/23 17:51 O2 Flow Rate 2 10/24/23 13:00 Pain Score (VAS): 0/10 I/O: Intake & Output 10/24/23 10/25/23 10/25/23 23:59 07:59 15:59 Intake Total 250 400 510 Output Total 200 Balance 250 200 510 Laboratory Tests 10/25/23 06:22 10/25/23 06:22 10/25/23 06:22 WBC 10.9 H RBC 3.59 L Hgb 11.4 L Hct 34.9 L MCV 97.2 MCH 31.8 MCHC 32.7 RDW 13.6 Plt Count 201 MPV 9.6 Immature Gran % (Auto) 0.5 Neut % (Auto) 82.9 H Lymph % (Auto) 9.2 L [place] % (Auto) 7.3 Eos % (Auto) 0.0 Baso % (Auto) 0.1 L Lymph # (Auto) 1.00 [place] # (Auto) 0.8 H Eos # (Auto) 0.0 Baso # (Auto) 0.0 Abs Immat Gran (auto) 0.06 H Absolute Neuts (auto) 9.0 H Absolute Nucleated RBC 0.0 Nucleated RBC % 0.0 Sodium 138 Potassium 4.2 Chloride 105 Carbon Dioxide 24 Anion Gap 9 BUN 27 H Creatinine 1.20 Estim Creat Clear Calc 68 Estimated GFR > 60 Glucose 126 H Calcium 8.4 Post-procedural complaints: none Patient Feedback: Patient satisfied with anesthetic care.
== END 2023-10-25 11:08 | disposition home or self-care (01) ==
LOC: ANHSURGERY 07:19 → ANH3MEDSUR 13:14 → ANHSURGERY 10-25 10:14 → ANH3MEDSUR 10-25 11:21
PROVIDERS: Anesthesiology; Physician Assistant Surgical; PCP Family Medicine; Visit Provider Orthopaedic Surgery
PROC: (CPT 27447; principal; 2023-10-24 07:30)
DX: M17.11 Unilateral primary osteoarthritis, right knee (principal); I34.0 Nonrheumatic mitral (valve) insufficiency; I49.8 Other specified cardiac arrhythmias; N40.1 Benign prostatic hyperplasia with lower urinary tract symptoms; N13.8 Other obstructive and reflux uropathy; I10 Essential (primary) hypertension; F17.220 Nicotine dependence, chewing tobacco, uncomplicated; E66.9 Obesity, unspecified; Z68.33 Body mass index [BMI] 33.0-33.9, adult
CPT/HCPCS: 27447; 36415; 73560; 80048; 80307; 82040; 83735; 84100; 85025; 86850; 86900; 86901; 93005; 97110; 97116; 97161; 97165; 97530; 97535; A9270; C1713; C1776; C8929; J0171; J0330; J0360; J0690; J1100; J1170; J1885; J2250; J2270; J2371; J2405; J2704; J2795; J3010; J3370; J7030; J7120; Q9957

== ENCOUNTER 2024-11-20 14:12 | Outpatient (CLI) | payer BC, SELFPAY ==
[2024-11-20 19:16] LABS: Basophils Absolute Auto 0.1 K/mm3 (0.0-0.1); Basophils Percent Auto 0.9 % (0.2-1.2); Eosinophils Absolute Auto 0.3 K/mm3 (0-0.3); Eosinophils Percent Auto 4.5 % (0-4.4); Hematocrit 45.8 % (42.0-52.0); Hemoglobin 14.7 g/dL (14.0-18.0); Immature Granulocyte Absolute 0.01 K/mm3 (0.00-0.031); Immature Granulocyte Percent A 0.2 % (0-0.5); Lymphocytes Absolute Auto 2.24 K/mm3 (0.9-3.2); Lymphocytes Percent Auto 39.9 % (18.3-44.2); Mean Corpuscular HGB Conc 32.1 g/dl (32-36); Mean Corpuscular Hemoglobin 30.5 pg (26-34); Mean Platelet Volume 9.8 fl (7.4-10.4); Monocytes Absolute Auto 0.5 K/mm3 (0.1-0.6); Monocytes Percent Auto 9.1 % (2.6-8.5); Neutrophils Absolute Auto 2.6 K/mm3 (1.3-6.7); Neutrophils Percent Auto 45.4 % (45.5-73.1); Platelet Count Result 287 k/mm3 (150-375); Red Blood Count 4.82 M/mm3 (4.6-6.20); Red Cell Distribution Width 12.7 % (11.5-14.5); White Blood Count 5.6 K/mm3 (4.5-10.0)
[2024-11-20 19:47] LABS: Alanine Aminotransferase 31 U/L (6-50); Albumin Level 4.6 g/dL (3.5-5.1); Alkaline Phosphatase 74 U/L (38-126); Anion Gap 8 mmol/L (4-12); Aspartate Amino Transferase 34 U/L (17-59); Bilirubin,Total 1.3 mg/dL (0.2-1.3); Blood Urea Nitrogen 16 mg/dL (9-20); Calcium 9.7 mg/dL (8.4-10.2); Carbon Dioxide 31 mmol/L (22-30); Chloride 99 mmol/L (98-107); Cholesterol 183 mg/dL (0-200); Estimated Glomerular Filt Rate > 60; Glucose 92 mg/dL (65-110); HDL Direct 43 mg/dL; Potassium 4.6 mmol/L (3.4-5.0); Sodium 138 mmol/L (137-145); Triglycerides 85 mg/dL (<150)
[2024-11-20 19:59] LABS: LDL Cholesterol Direct 120 mg/dL
[2024-11-20 20:15] LABS: Prostate Specific Antigen 5.1 ng/mL (< OR = 4.0)
[2024-11-21 04:16] LABS: Hemoglobin A1C 5.8 % (<5.7)
== END 2024-11-20 14:13 | disposition home or self-care (01) ==
LOC: ANHGOSHLAB 14:13
PROVIDERS: PCP Family Medicine; Visit Provider Family Medicine
DX: Z12.5 Encounter for screening for malignant neoplasm of prostate (principal); Z13.220 Encounter for screening for lipoid disorders; Z13.228 Encounter for screening for other metabolic disorders; R53.83 Other fatigue; R73.01 Impaired fasting glucose
CPT/HCPCS: 36415; 80053; 80061; 83036; 84153; 85025; G0103

== ENCOUNTER 2025-03-16 08:44 | Emergency (ER) | payer MEDICARE, OTHER, SELFPAY ==
--- NOTE | ~2025-03-16 | XR_ITS ---
EXAMINATION: XR foot RT min 3V DATE: 03/16/2025 10:55 INDICATION: Possible foreign body near the distal fourth metatarsal. TECHNIQUE: Dorsoplantar, oblique and lateral views of the right foot were obtained. COMPARISON: None. FINDINGS: Bone alignment is normal. No fracture. Mild osteoarthritis at the first and second metatarsophalangea l and a few interphalangeal joints. Moderate-sized plantar calcaneal spur. Prominent heterotopic ossi fication near the anterior tip the lateral malleolus likely sequela of chronic lateral ankle sprain. Small corticated ossicle near the head of the fifth metatarsal. No radiopaque foreign bodies. IMPRESSION: 1. No acute osseous abnormality or radiopaque foreign bodies. Reviewed, dictated and finalized at location A.
[2025-03-16 09:05] VITALS: BP 131/84; PULSE 76; RESP 16; TEMP 36.4; O2SAT 99
--- NOTE | 2025-03-16 10:32 | ED.GENADULT ---
HPI - General Adult General Chief complaint: Wound/Laceration Stated complaint: Cut Right Foot Time Seen by Provider: 03/16/25 10:32 Source: patient Mode of arrival: ambulatory Limitations: no limitations History of Present Illness HPI narrative: 65-year-old male patient presents to the [facility] with complaints of right foot pain for the past 3 weeks. Patient states that he had a window break at his house and he cleaned it up however he states he frequently walks around barefoot id and thinks that he might have stepped on a piece of glass about 3 weeks ago. Patient states he thought it would migrate out and did not really attempt to try and remove it. Patient states he did try and call his primary doctor to be seen but can not get in until June. Patient denies any history of diabetes. Last tetanus shot was about 2 years ago after he had a laceration to the eyebrow. Related Data Allergies Allergy/AdvReac Type Severity Reaction Status Date / Time No Known Allergies Allergy Mild Verified 03/16/25 09:15 Review of Systems Review of Systems: CONSTITUTIONAL: Denies fever, chills, or sweats. EYES: Denies visual changes, redness, or discharge. ENT: Denies rhinorrhea, congestion, sore throat, or otalgia. CARDIOVASCULAR: Denies chest pain, palpitations, or edema. RESPIRATORY: Denies cough or dyspnea. GASTROINTESTINAL: Denies abdominal pain, nausea, vomiting, or diarrhea. GENITOURINARY: Denies dysuria or hematuria. SKIN: Denies rash or itching. MUSCULOSKELETAL: Denies back pain, joint pain, or myalgia. Positive right foot pain x3 weeks NEUROLOGIC: Denies headache, numbness, or weakness. PSYCHIATRIC: Denies anxiety or depression. [facility] Past Medical History Medical History Prediabetes Essential (primary) hypertension Degenerative joint disease of knee Right knee pain Right knee DJD Hypertension Weight gain Medial meniscus tear Tinea cruris Knee pain, left Cerumen impaction BPH w urinary obs/LUTS Benign prostatic hyperplasia Chronic left-sided low back pain without sciatica Insomnia, unspecified Other abnormal glucose Other obstructive and reflux uropathy Sleep disorder Tobacco use disorder Surgical History Surgical History History of tonsillectomy History of total right knee replacement (TKR) (~10/2023) Family History Family History Father Family history of malignant neoplasm Patient's father is Sibling Family history of pancreatic cancer Mother Family history of malignant neoplasm of ovary Social History Social History Social History: Caffeine-yes Smoking status: Never smoker Smokeless tobacco user: chewing tobacco Second hand tobacco smoke exposure: No Additional smoking assessment comments: CHEWING TOBACCO -LAST TIME 09/09/23 Alcohol intake: current Drinks per week: 7 Substance use: never Substance use type: does not use Do You Feel Safe in your Home?: Yes Lack of Transportation: No Lack of Food: Never True Current Housing: I Have Housing Concerned About Future Housing: No Difficulty Paying Gas/Electric Bills: No Difficulty Paying for Meds: No Currently Unemployed: No Education: Master's Degree or Higher Difficulty w/ Childcare or Family Care: No Living arrangements: with family Gender identity (if verbalized by the patient): Male Spiritual care concerns: No Comments At the time of my signature I agree with nursing past medical history, surgical, social, and family history. There is no relevant family history pertinent to the presenting complaint. Exam Narrative: GENERAL: Well-appearing, well-nourished, and in no acute distress. HEAD: Normocephalic, atraumatic. EYES: PERRLA and EOMI. ENT: Nares clear, no rhinorrhea or epistaxis. Mucous membranes moist. NECK: Supple. No lymphadenopathy CHEST: Clear to auscultation. No respiratory distress. HEART: Regular rate and rhythm. No murmur heard. Normal peripheral pulses. ABDOMEN: Soft, nontender, nondistended, normal active bowel sounds. EXTREMITIES: Normal range of motion. No edema. patient has small puncture wound noted under the 2nd metatarsal on sole of the right foot. There is no surrounding erythema or warmth present. No obvious noticeable foreign body. Patient does have excellent range of motion and 2+ DP pulses present. SKIN: Warm, dry, no rash. NEURO: No focal deficits. Alert and oriented x3. Course Course Level of Care: Express Care Visit Reevaluation(s) Reevaluation #1: re-evaluated patient and notified him that the x-ray does not show any obvious body at this time. Discussed with him that since he did have a puncture wound and his daughter went ahead and went and did drowned in his foot today we are going to go ahead throw him on some antibiotics to prevent any infection. Discussed with him he could also use some warm Epson salt soaks as well as antibiotic ointment over the puncture wound to ensure it does not get infected. Patient is up-to-date on tetanus. Discussed with patient's very important that he wear shoes when going outside our around the house for the next couple of weeks until the puncture wound has healed. Patient verbalized understanding denies any other questions or concerns at this time. Date: 03/16/25 Time: 11:16 Vital Signs Vital signs: Vital Signs Temperature 36.4 C L 03/16/25 09:05 Pulse Rate 76 03/16/25 09:05 Respiratory Rate 16 03/16/25 09:05 Blood Pressure 131/84 03/16/25 09:05 Pulse Oximetry 99 03/16/25 09:05 Temperature 36.4 C L 03/16/25 09:05 Pulse Rate 76 03/16/25 09:05 Respiratory Rate 16 03/16/25 09:05 Blood Pressure 131/84 03/16/25 09:05 Pulse Oximetry 99 03/16/25 09:05 Vital signs reviewed. The patient has been informed that they may have pre-hypertension or Hypertension based on a BP reading in the department. I recommend that the patient call the primary care provider listed on their discharge instructions or a physician of their choice this week to arrange follow up for further evaluation of possible pre-hypertension or Hypertension Medical Decision Making MDM Narrative Medical decision making narrative: Plan care for patient is to x-ray the right foot to assess to see if there is still any type of foreign body into the foot. Discussed with him that since it he did step on glass the x-ray may or may not be able to pick it up. I will reassess him once this has resulted. Differential Diagnosis Differential Diagnosis: Differential diagnosis: Abscess, cellulitis, hidradenitis, laceration, puncture wound. Vital Signs Vital Signs: Vital Signs Temperature 36.4 C L 03/16/25 09:05 Pulse Rate 76 03/16/25 09:05 Respiratory Rate 16 03/16/25 09:05 Blood Pressure 131/84 03/16/25 09:05 Pulse Oximetry 99 03/16/25 09:05 Temperature 36.4 C L 03/16/25 09:05 Pulse Rate 76 03/16/25 09:05 Respiratory Rate 16 03/16/25 09:05 Blood Pressure 131/84 03/16/25 09:05 Pulse Oximetry 99 03/16/25 09:05 Imaging Data Radiologist's impression: [facility] [address] [place] [address] XRay Report Signed Patient: Markus Lewis : 1960 MR#: [id number] Age: 65 Acct:[id number] Loc: [facility] ADM Date: 03/16/25Attending Dr: Ordering Physician: uRby Plasencia APRN Date of Service: 03/16/25 Procedure(s): XR foot RT min 3V Accession Number(s): [id number] cc: BLOW TORCH BURNER PHYSICIAN; Ruby Plasencia [employer] TEAM MEMBER~ EXAMINATION: XR foot RT min 3V DATE: 03/16/2025 10:55 INDICATION: Possible foreign body near the distal fourth metatarsal. TECHNIQUE: Dorsoplantar, oblique and lateral views of the right foot were obtained. COMPARISON: None. FINDINGS: Bone alignment is normal. No fracture. Mild osteoarthritis at the first and second metatarsophalangeal and a few interphalangeal joints. Moderate-sized plantar calcaneal spur. Prominent heterotopic ossification near the anterior tip the lateral malleolus likely sequela of chronic lateral ankle sprain. Small corticated ossicle near the head of the fifth metatarsal. No radiopaque foreign bodies. IMPRESSION: 1. No acute osseous abnormality or radiopaque foreign bodies. Reviewed, dictated and finalized at location A. Critical Care Time Critical Care Time Critical Care Time: No Discharge Plan Discharge Clinical Impression: Puncture wound of foot, right Patient Disposition: Home Condition: Stable Instructions: Antibiotic Form, Puncture Wound (ED) Additional Instructions: May take [id number] Tylenol or ibuprofen as needed for pain. Take antibiotics as directed. Rest the injury site as much possible. Otherwise try and keep her weight off of the foot as it heals. Elevate the injury above the level of your heart is often NGT and this will help decrease swelling and pain. Go to the ER or call your primary care physician if: You have severe pain You have numbness or tingling in the area of your wound You're wound starts bleeding and does not stop even if you apply pressure. You have new drainage or bad odor coming from the wound You have a fever You have increased swelling, redness or pain You have red streaks on your skin coming from your wound Patient Language: Serbian Prescriptions: New cephalexin 500 mg capsule 500 mg PO Q12H 7 Days Qty: 14 0RF No Action tadalafil 5 mg tablet 5 mg PO DAILY Qty: 90 1RF varenicline tartrate [Chantix Starting Month Box] 0.5 mg (11)- 1 mg (42) tablets,dose pack See Rx Instructions PO PER PKG DIR Qty: 53 0RF Rx Instructions: PO PER PKG DIR losartan-hydrochlorothiazide 100-25 mg tablet 1 tablet PO DAILY Qty: 90 4RF omeprazole 40 mg capsule,delayed release(DR/EC) 40 mg PO DAILY Qty: 30 5RF amlodipine 10 mg tablet See Rx Instructions .ROUTE .COMPLEX Qty: 90 1RF Dose Instruction: Take 1 Tablet (10 mg) by mouth daily. Rx Instructions: Take 1 Tablet (10 mg) by mouth daily. Follow-up/Referrals: PHYSICIAN,BLOW TORCH BURNER [Primary Care Provider] - Time of Disposition: 11:09
== END 2025-03-16 11:13 | disposition home or self-care (01) ==
PROVIDERS: Emergency Provider Nurse Practitioner Family
DX: S91.331A Puncture wound without foreign body, right foot, initial encounter (principal); W25.XXXA Contact with sharp glass, initial encounter; Z87.891 Personal history of nicotine dependence; I10 Essential (primary) hypertension; N40.1 Benign prostatic hyperplasia with lower urinary tract symptoms; N40.0 Benign prostatic hyperplasia without lower urinary tract symptoms; M17.11 Unilateral primary osteoarthritis, right knee; Z96.651 Presence of right artificial knee joint; R73.03 Prediabetes
CPT/HCPCS: 73630; 99213; G0463

== ENCOUNTER 2025-06-20 14:29 | Outpatient (CLI) | payer MEDICARE, OTHER, SELFPAY ==
--- OUTSIDE RECORDS SUMMARY | 2025-06-20 14:33 | XMS_ITS | Clinical Summary ---
Author Organization [facility] Address [address] 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 90 Tablet 4 04/22/2022 2:10 PM CDT 2 Active tadalafil (CIALIS) 5 mg tablet Take 1 Tablet (5 mg) by mouth daily. 90 Tablet 1 01/23/2023 10:12 AM CDT 2 Active losartan-hydroC HLOROthiazide (HYZAAR) 100-25 mg tablet Take 1 tablet by mouth daily. 90 Tablet 4 06/27/2023 6:21 PM CDT 2 Active tadalafil (CIALIS) 5 mg tablet Take one tablet (5 MG) orally daily 90 Tablet 1 10/28/2022 11:21 AM FISH FLIPPER 2 Active chlorhexidine gluconate (HIBICLENS) 4 % Liquid Cleanse operative extremity, in shower, every day for 3 days prior to surgical procedure. 236 mL 01/09/2023 10:38 AM FISH FLIPPER 3 Active HYDROcodone-po taminophen (NORCO) 5-325 mg tablet Take 1 Tablet by mouth every 12 hours as needed for pain. 30 Tablet 01/12/2023 3:56 PM FISH FLIPPER 3 Active traMADoL (ULTRAM) 50 mg tablet Take one tablet by mouth twice daily as needed 30 Tablet 03/16/2023 5:17 PM CDT 3 Active traMADoL (ULTRAM) 50 mg tablet Take 1 Tablet (50 mg) by mouth every 6-8 hours as needed for pain. 30 Tablet 07/25/2023 5:16 PM CDT 3 Active ciprofloxacin-d exAMETHasone (CIPRODEX) 0.3-0.1 % Drops, Suspension Administer 4 drops in each ear every 12 hours as directed 7.5 mL 3 Active ciprofloxacin-d exAMETHasone (CIPRODEX) 0.3-0.1 % Drops, Suspension ADMINISTER 4 DROPS IN EACH EAR EVERY 12 HOURS 7.5 mL 3 Active varenicline (CHANTIX) 0.5 mg (11)- 1 mg (42) tablets STARTER dose pack Take as directed on package. 53 Tablet 09/19/2023 2:40 PM FISH FLIPPER 3 Active amLODIPine-olme sartan 5-40 mg Tablet Take 1 Tablet by mouth daily. 30 Tablet 1 10/29/2023 3:41 PM FISH FLIPPER 3 Active acetaminophen (TYLENOL ARTHRITIS) 650 mg Extended Release tablet Take 1 Tablet (650 mg) by mouth every 4 hours. 90 Tablet 3 Active cefdinir (OMNICEF) 300 mg capsule Take 1 Capsule (300 mg) by mouth every 12 hours. 14 Capsule 10/25/2023 2:49 PM FISH FLIPPER 3 Active apixaban (Eliquis) 2.5 mg tablet Take 1 Tablet (2.5 mg) by mouth every 12 hours. 28 Tablet 10/25/2023 2:49 PM FISH FLIPPER 3 Active polyethylene glycol (MIRALAX) 17 gram Powder in Packet DISSOLVE 17 GRAMS AND DRINK DIRECTED EVERY MORNING 30 Each 3 Active oxyCODONE (ROXICODONE) 5 mg tablet Take 1 Tablet (5 mg) by mouth every 4 hours as needed. Max Daily Amount: 30 mg 40 Tablet 10/25/2023 2:49 PM FISH FLIPPER 3 Active oxyCODONE (ROXICODONE) 10 mg tablet Take 0.5 Tablets (5 mg) by mouth every 4 hours. Max Daily Amount: 30 mg 20 Tablet 10/28/2023 11:39 AM FISH FLIPPER 3 Active oxyCODONE (ROXICODONE) 5 mg tablet Take 1 Tablet (5 mg) by mouth every 4 hours. 20 Tablet 11/02/2023 5:18 PM FISH FLIPPER 3 Active sennosides-docu sate sodium (Senokot-S) 8.6-50 mg tablet Take 2 Tablets by mouth 2 times daily. 60 Tablet 11/09/2023 3:16 PM FISH FLIPPER 4 Active oxyCODONE (ROXICODONE) 5 mg tablet TAKE 2 TABLETS BY MOUTH EVERY 4 HOURS NEEDED 50 Tablet 11/14/2023 5:24 PM FISH FLIPPER 4 Active celecoxib (CeleBREX) 200 mg capsule Take 1 Capsule (200 mg) by mouth 2 times daily. 60 Capsule 12/06/2023 4:12 PM FISH FLIPPER 4 Active oxyCODONE (ROXICODONE) 5 mg tablet Take 1 Tablet (5 mg) by mouth every 4 hours as needed. Max Daily Amount: 30 mg 20 Tablet 01/06/2024 5:38 PM FISH FLIPPER 4 Active tadalafil (CIALIS) 5 mg tablet Take 1 Tablet (5 mg) by mouth daily. 30 Tablet 1 03/30/2024 2:50 PM CDT 4 Active amLODIPine (NORVASC) 10 mg tablet Take 1 Tablet (10 mg) by mouth daily. 30 Tablet 03/30/2024 2:50 PM CDT 4 Active tadalafil (CIALIS) 5 mg tablet Take 1 Tablet (5 mg) by mouth daily. LAST REFILL UNTIL SEEN 30 Tablet 07/02/2024 6:11 PM CDT 4 Active tadalafil (CIALIS) 5 mg tablet Take 1 Tablet (5 mg) by mouth daily. 30 Tablet 5 11/06/2024 8:25 AM FISH FLIPPER 4 Active tadalafil (CIALIS) 5 mg tablet Take 1 Tablet (5 mg) by mouth 2 times daily. 60 Tablet 5 02/14/2025 3:33 PM CDT 5 Active losartan-hydroC HLOROthiazide (HYZAAR) 100-25 mg tablet Take 1 Tablet by mouth daily. 90 Tablet 4 05/15/2025 2:34 PM CDT 5 Active tadalafil (CIALIS) 5 mg tablet Take 1 Tablet (5 mg) by mouth daily. 90 Tablet 1 04/02/2025 3:55 PM CDT 5 Active varenicline tartrate (CHANTIX) 0.5 mg (11)- 1 mg (42) tablets STARTER dose pack Take as directed on package 53 Tablet 01/11/2025 3:55 PM FISH FLIPPER Active omeprazole (PriLOSEC) 40 mg Capsule, Delayed Release(E.C.) Take one capsule (40 mg) orally daily 30 Capsule 5 02/14/2025 3:33 PM CDT 5 Active amLODIPine (NORVASC) 10 mg tablet Take 1 Tablet (10 mg) by mouth daily. 90 Tablet 1 02/18/2025 4:22 PM CDT 5 Active tadalafil (CIALIS) 5 mg tablet Take 1 Tablet (5 mg) by mouth daily. 90 Tablet 1 5 Active omeprazole (PriLOSEC) 20 mg Capsule, Delayed Release(E.C.) Take 1 Capsule (20 mg) by mouth daily. 90 Capsule 1 5 Active Social History Tobacco Use Types Packs/Day Years Used Date Smoking Tobacco: Never Assessed Sex and Gender Information Value Date Recorded Sex Assigned at Not on file Legal Sex Male 3:27 PM CDT Gender Identity Not on file Sexual Orientation Not on file Plan of Treatment Health Maintenance Due Date Last Done Comments DTAP/TDAP/TD VACCINES (1 - Tdap) 02/18/1979 COLORECTAL SCREENING 02/18/2005 Colorectal Cancer Screening 02/18/2005 FIT-DNA Q 3 years 02/18/2005 FIT/FOBT Q 1 year 02/18/2005 Flex Sig/CT Colonography Q 5 years 02/18/2005 PNEUMOCOCCAL VACCINE 50+ YEARS (1 of 1 - PCV) 02/19/20 10 ZOSTER VACCINE (1 of 2) 02/18/2010 INFLUENZA VACCINE (#1) 2025 RSV VACCINE (60+ or ) (1 - 1-dose 75+ series) 02/18/2035 Insurance RX [employer] (INTERNAL) [facility] [employer] Medicare Part D
[2025-06-20 18:46] LABS: Alanine Aminotransferase 22 U/L (6-50); Albumin Level 4.4 g/dL (3.5-5.1); Alkaline Phosphatase 55 U/L (38-126); Anion Gap 9 mmol/L (4-12); Aspartate Amino Transferase 36 U/L (17-59); Bilirubin,Total 0.6 mg/dL (0.2-1.3); Blood Urea Nitrogen 24 mg/dL (9-20); Calcium 9.4 mg/dL (8.4-10.2); Carbon Dioxide 26 mmol/L (22-30); Chloride 105 mmol/L (98-107); Estimated Glomerular Filt Rate > 60; Glucose 129 mg/dL (65-110); Potassium 4.1 mmol/L (3.4-5.0); Sodium 140 mmol/L (137-145); Total Protein 7.4 g/dL (6.3-8.2)
[2025-06-20 19:16] LABS: Thyroid Stimulating Hormone Reflex 1.750 uIU/mL (0.465-4.68)
[2025-06-20 19:23] LABS: Prostate Specific Antigen 3.6 ng/mL (< OR = 4.0)
[2025-06-20 19:43] LABS: Vitamin B12 614.0 pg/mL (239-931)
[2025-06-20 20:14] LABS: Hemoglobin A1C 5.9 % (<5.7)
[2025-06-21 12:08] LABS: PSA, Free 0.90 ng/mL
== END 2025-06-20 14:30 | disposition home or self-care (01) ==
LOC: ANHGOSHLAB 14:31
PROVIDERS: PCP Family Medicine; Visit Provider Family Medicine
DX: R73.03 Prediabetes (principal); I10 Essential (primary) hypertension; E55.9 Vitamin D deficiency, unspecified; E53.8 Deficiency of other specified B group vitamins; R97.20 Elevated prostate specific antigen [PSA]
CPT/HCPCS: 36415; 80053; 82306; 82607; 83036; 84153; 84154; 84443; G0103

== ENCOUNTER 2025-06-20 14:53 | Outpatient (CLI) | payer MEDICARE, OTHER, SELFPAY ==
--- NOTE | ~2025-06-20 | XR_ITS ---
XR thoracic spine 3V 06/20/2025 15:14 Indication: Radiculopathy Procedure: 3 views thoracic spine Comparison: No prior studies for comparison. Findings: There is diffuse idiopathic skeletal hyperostosis (DISH) of the thoracic spine. There is mi ld dextrocurvature of the thoracic spine centered at T9. Surrounding lung parenchyma unremarkable. No acute fracture or traumatic malalignment. Impression: 1: Diffuse idiopathic skeletal hyperostosis of the thoracic spine. Reviewed, dictated and finalized at location A. Impression: 1: Diffuse idiopathic skeletal hyperostosis of the thoracic spine.
== END 2025-06-20 14:54 | disposition home or self-care (01) ==
LOC: GOSHIMG 14:53
PROVIDERS: PCP Family Medicine; Visit Provider Family Medicine
DX: M54.14 Radiculopathy, thoracic region (principal); M48.14 Ankylosing hyperostosis [Forestier], thoracic region
CPT/HCPCS: 72072